=== PATIENT | female | born 1955 ===

== ENCOUNTER → 2023-02-09 14:10 | Outpatient (BNVA) | payer OTHER, MEDICAID, SELFPAY | PROVIDERS: PCP Student in an Organized Health Care Education/Training Program; Visit Provider Surgery Vascular Surgery | DX: I71.40 Abdominal aortic aneurysm, without rupture, unspecified (principal); I10 Essential (primary) hypertension | CPT/HCPCS: 99202 ==

== ENCOUNTER 2023-03-13 05:59 | Inpatient (IN) | payer OTHER, SELFPAY ==
--- NOTE | 2023-03-03 12:27 | P.CONAN_ITS ---
Documented by User: Ludivina Sanchez NP 03/10/23 10:05 HPI - Anesthesia Eval Consult details Narrative: 67yo F for Aortic Endovascular Repair Cardiac optimized [facility] Active Problems Active Problems: All Active Problems (Updated 02/10/23 @ 09:01 by Guicho Conti MD) AAA (abdominal aortic aneurysm) without rupture (Acute) Past Medical History Medical History Hypertension Family History Family History (Updated 02/09/23 @ 14:33 by ALEX Carmichael) Father Diabetes Hypertension Mother No problems noted. Family history of problems with anesthesia: No Surgical History Surgical History (Updated 03/13/23 @ 06:30 by Shannon Torres RN) Hx of colonoscopy Hx of eye surgery History of Problems with Anesthesia: No Social History Social History (Updated 02/09/23 @ 14:34 by ALEX Carmichael) Are you a primary healthcare liaison to a significant other at home: No Do you presently have visiting nurse or other home services: No Patient Tobacco Use Status: Never used Tobacco Use of substances other than those prescribed or required for medical reasons: No Have you been hit, kicked, punched, or otherwise hurt by someone within the past year? If so, by whom?: No Advance Directives: No Advance Directives Information Provided: No Advance Directives on File: No Recently lost weight without trying: No Eating poorly because of decreased appetite: No Nutrition Risks: No Nutritional Risk Patient : No : No Poor oral hygiene: Yes (bottom partial) Narrative Narrative: No recent illness No CP/SOB with >4mets. Reports rare SOB when laying flat. Meds Allergies Allergy/AdvReac Type Severity Reaction Status Date / Time Sulfa (Sulfonamide Allergy Severe Rash Verified 02/09/23 14:30 Antibiotics) Home Medications Medication Instructions Recorded Confirmed Last Taken Type amlodipine 10 mg tablet 10 mg PO DAILY 02/09/23 03/03/23 03/13/23 History aspirin 81 mg tablet,delayed 81 mg PO DAILY 02/09/23 03/03/23 03/05/23 History release metoprolol tartrate 50 mg tablet 50 mg PO DAILY 02/09/23 03/03/23 03/13/23 History multivitamin 1 tab PO DAILY 02/09/23 03/03/2303/12/23 History cholecalciferol (vitamin D3) 25 25 mcg PO DAILY 03/02/23 03/03/23 03/12/23 History mcg (1,000 unit) chewable tablet magnesium 250 mg tablet 250 mg PO DAILY 03/02/23 03/03/23 03/12/23 History potassium 95 mg tablet 90 mg PO DAILY 03/03/23 03/03/23 03/05/23 History Exam Exam Date and Time: March 03, 2023 122 Pertinent Lab Results Pertinent Lab Results: Lab Results 03/03/23 03/03/23 03/03/23 Range/Units 13:30 13:36 13:36 WBC 6.2 (4.8-10.8) X10*3/uL RBC 4.04 L (4.20-5.50) X10*6/uL Hgb 12.2 (12.0-16.0) g/dl Hct 38.1 (37.0-47.0) % MCV 94.3 (80.0-98.0) fL MCH 30.2 (27.0-33.0) pg MCHC 32.0 (31.0-35.0) g/dl RDW 13.9 (11.0-16.0) % Plt Count 160 (160-400) X10*3/uL MPV 11.0 (9.4-12.3) fL Absolute Nucleated RBC 0.000 (0.0-0.012) X10*3/uL Nucleated RBC % (auto) 0.0 (0.0-0.2) /100WBC PT 10.8 (10.0-13.1) SEC INR 0.9 (0.9-1.1) APTT 28.0 (26.0-36.4) SEC Sodium (135-145) mmol/L Potassium (3.3-5.1) mmol/L Chloride (96-108) mmol/L Carbon Dioxide (22-29) mmol/L Anion Gap (12-20) BUN (9-16) mg/dL Creatinine (0.5-1.4) mg/dL Estim Creat Clear Calc Estimated GFR Random Glucose (60-115) mg/dL Calcium (8.4-10.2) mg/dL Blood Type O Positive Antibody Screen NEGATIVE 03/03/23 Range/Units 13:36 WBC (4.8-10.8) X10*3/uL RBC (4.20-5.50) X10*6/uL Hgb (12.0-16.0) g/dl Hct (37.0-47.0) % MCV (80.0-98.0) fL MCH (27.0-33.0) pg MCHC (31.0-35.0) g/dl RDW (11.0-16.0) % Plt Count (160-400) X10*3/uL MPV (9.4-12.3) fL Absolute Nucleated RBC (0.0-0.012) X10*3/uL Nucleated RBC % (auto) (0.0-0.2) /100WBC PT (10.0-13.1) SEC INR (0.9-1.1) APTT (26.0-36.4) SEC Sodium 141 (135-145) mmol/L Potassium 4.7 (3.3-5.1) mmol/L Chloride 107 (96-108) mmol/L Carbon Dioxide 26 (22-29) mmol/L Anion Gap 13 (12-20) BUN 29 H (9-16) mg/dL Creatinine 0.94 (0.5-1.4) mg/dL Estim Creat Clear Calc 45.2 Estimated GFR 59 Random Glucose 87 (60-115) mg/dL Calcium 10.1 (8.4-10.2) mg/dL Blood Type Antibody Screen Narrative Narrative: EKG 01/2023 NSR @ 69 Airway Mallampati Class: II TM Dist: >3cm Neck ROM: Full Partial: Upper Heart: RRR Lungs: CTAB Assessment and Plan Assessment Anesthesia Assessment: Anesthesia Plan Discussed and PAT Visit Final Anesthetic Review Family History of Problems with Anesthesia: No History of Problems with Anesthesia: No Documented by User: Jayda Chappell MD 03/13/23 08:40 PMFSH Past Medical History Medical History Hypertension Family History Family History (Updated 02/09/23 @ 14:33 by ALEX Carmichael) Father Diabetes Hypertension Mother No problems noted. Surgical History Surgical History (Updated 03/13/23 @ 06:30 by Shannon Torres RN) Hx of colonoscopy Hx of eye surgery Social History Social History (Updated 02/09/23 @ 14:34 by ALEX Carmichael) Are you a primary healthcare liaison to a significant other at home: No Do you presently have visiting nurse or other home services: No Patient Tobacco Use Status: Never used Tobacco Use of substances other than those prescribed or required for medical reasons: No Have you been hit, kicked, punched, or otherwise hurt by someone within the past year? If so, by whom?: No Advance Directives: No Advance Directives Information Provided: No Advance Directives on File: No Recently lost weight without trying: No Eating poorly because of decreased appetite: No Nutrition Risks: No Nutritional Risk Patient : No : No Poor oral hygiene: Yes (bottom partial) Meds Allergies Allergy/AdvReac Type Severity Reaction Status Date / Time Sulfa (Sulfonamide Allergy Severe Rash Verified 02/09/23 14:30 Antibiotics) Home Medications Medication Instructions Recorded Confirmed Last Taken Type amlodipine 10 mg tablet 10 mg PO DAILY 02/09/23 03/03/23 03/13/23 History aspirin 81 mg tablet,delayed 81 mg PO DAILY 02/09/23 03/03/23 03/05/23 History release metoprolol tartrate 50 mg tablet 50 mg PO DAILY 02/09/23 03/03/23 03/13/23 History multivitamin 1 tab PO DAILY 02/09/23 03/03/23 03/12/23 History cholecalciferol (vitamin D3) 25 25 mcg PO DAILY 03/02/23 03/03/23 03/12/23 History mcg (1,000 unit) chewable tablet magnesium 250 mg tablet 250 mg PO DAILY 03/02/23 03/03/23 03/12/23 History potassium 95 mg tablet 90 mg PO DAILY 03/03/23 03/03/23 03/05/23 History Assessment and Plan Final Anesthetic Review NPO: Yes ASA Class: III Final Preanesthetic Review: No Changes in Pt Med Stat, Meds/Allgs Chart Reviewed, Consent Obtained/Reviewed and Anes Risks/Benef Reviewed Patient Risk: Intermediate Procedure Risk: High Anesthetic Plan Anesthetic Plan: GA and Agree w/ Assess. and Plan Disposition: Standard PACU and Inp. Admit - ICU
[2023-03-03 12:38] VITALS: BP 125/67; PULSE 69; RESP 18; O2SAT 98; BMI 23.7
[2023-03-03 14:17] LABS: Hematocrit 38.1 % (37.0-47.0); Hemoglobin 12.2 g/dl (12.0-16.0); Mean Corpuscular Hemoglobin 30.2 pg (27.0-33.0); Mean Corpuscular Volume 94.3 fL (80.0-98.0); Platelet Count 160 X10*3/uL (160-400); Red Blood Count 4.04 X10*6/uL (4.20-5.50); Red Cell Distribution Width 13.9 % (11.0-16.0); White Blood Count 6.2 X10*3/uL (4.8-10.8)
[2023-03-03 14:20] LABS: INTERNATIONAL NORM RATIO 0.9 (0.9-1.1); Prothrombin Time 10.8 SEC (10.0-13.1)
[2023-03-03 15:30] LABS: Anion Gap 13 (12-20); Blood Urea Nitrogen 29 mg/dL (9-16); Calcium 10.1 mg/dL (8.4-10.2); Carbon Dioxide 26 mmol/L (22-29); Chloride 107 mmol/L (96-108); Creatinine Clr Calc Pharmacy 45.2; Estimated Glomerular Filt Rate 59; Glucose Random 87 mg/dL (60-115); Potassium 4.7 mmol/L (3.3-5.1); Sodium 141 mmol/L (135-145)
[2023-03-13] VITALS (28 sets, daily range): BP systolic 56–133; BP diastolic 31–67; PULSE 46–94; RESP 12–20; TEMP 36.6–37.1; O2SAT 94–100
--- NOTE | ~2023-03-13 | CT_ITS ---
EXAMINATION: CT ANGIOGRAM ABDOMEN AND PELVIS CLINICAL INFORMATION: Decreased hematocrit and platelet count COMPARISON: Intraoperative fluoroscopic images March 2023 TECHNIQUE: Multiple axial images were obtained through the abdomen and pelvis following the administration of 80 mL of Omnipaque 350 intravenous contrast. Images were reviewed on a dedicated 3-D workstation. 3-D reconstructions with concurrent supervision. This CT examination was performed using dose optimization techniques as appropriate, variously including the following: *Automated exposure control *Adjustment of mA and/or kV according to patient size (this includes techniques or standardized protocols for targeted exams where dose is matched to indication/reason for exam; i.e. extremities or head) *Use of iterative reconstruction technique DLP: 296 mGy-cm FINDINGS: There is no active arterial bleeding/extravasation. There are post surgical changes from endovascular stent in the abdominal aorta and bilateral common iliac arteries. Proximal end of the stent in the upper suprarenal abdominal aorta. Distal ends of the stents are in the proximal bilateral common iliac arteries. There is some mild hematoma or thrombus seen in the aneurysm sac surrounding the stent. Aneurysm measures maximum 4.5 x 5 cm in AP and transverse dimension. No comparison preop imaging is available. There is minimal enhancement of the aneurysm postcontrast. No evidence of active arterial bleeding is seen. There is a small endoleak along the left inferior end of the aortic stent graft for example coronal reconstructed image 42 series 9. There is some filling of small lumbar arteries. There is a large right groin hematoma. This measures at least 5 x 5 x 10 cm. This is only partially visualized. The right common femoral artery is normal-appearing. No pseudoaneurysm aneurysm or AV fistula. The celiac axis, SMA are patent. MATEUSZ not seen. Single patent renal arteries. The common internal and external iliac and common femoral arteries are patent and normal in caliber. Both femoral bifurcations are patent. No evidence of retroperitoneal hematoma is seen. No ascites. Lung bases are clear. The liver is normal. The gallbladder is well-distended. No gallstones. No biliary duct dilatation. The spleen, pancreas, and adrenal glands are normal. Bilateral renal cysts. No imaging follow-up recommended. Small amount of air in the bladder. This may be related to Cole catheter placement. Mild constipation and diverticulosis. Appendix is normal. Small bowel and stomach are normal. No hernia. No adenopathy. Degenerative disc disease at L5-S1. CT/CT angio abdomen pelvis IMPRESSION: Postsurgical change following aortobiiliac stent graft. No evidence of active arterial extravasation. Small left inferior endoleak. No retroperitoneal hematoma. Aneurysm sac measures 4.5 x 5 cm in AP and transverse dimension. No preoperative imaging available for comparison. Large right groin hematoma. No evidence of active arterial extravasation at the groin, pseudoaneurysm or AV fistula. Fleischner guidelines were followed. Findings were communicated to Dr. Conti in person on 03/15/2023 at the completion of the exam
--- NOTE | ~2023-03-13 | FL_ITS ---
EXAMINATION: XR FLUOROSCOPY WITH IMAGES CLINICAL INFORMATION: Abdominal aortic aneurysm repair COMPARISON: None available. TECHNIQUE: Fluoroscopy Supervised By: Iliana. Fluoroscopy Time: 20 minutes. Cumulative Dose: 1 6 1,000,000) mGy. DAP: 40 Gycm2. Images: 2. FINDINGS: Fluoroscopy guidance was provided for endovascular abdominal aortic aneurysm repair. Images demonstrate catheter and stent in the abdominal aorta and proximal common iliac arteries. FL/FL guidance in OR IMPRESSION: Fluoroscopy guidance for endovascular abdominal aortic aneurysm repair
[2023-03-13 06:37] LABS: COVID-19 Test Negative (Negative); IDNOW Serial# BCCEAD1C
[2023-03-13] MEDS: Lactated Ringers 1,000 ML 100 ML IVCONT (06:45)
[2023-03-13 06:52] LABS: Hematocrit 37.1 % (37.0-47.0); Hemoglobin 12.1 g/dl (12.0-16.0); Mean Corpuscular HGB Conc 32.6 g/dl (31.0-35.0); Mean Corpuscular Volume 92.1 fL (80.0-98.0); Mean Platelet Volume 10.7 fL (9.4-12.3); Platelet Count 144 X10*3/uL (160-400); Red Blood Count 4.03 X10*6/uL (4.20-5.50); Red Cell Distribution Width 13.9 % (11.0-16.0); White Blood Count 6.5 X10*3/uL (4.8-10.8)
[2023-03-13 06:58] LABS: Anion Gap 12 (12-20); Blood Urea Nitrogen 23 mg/dL (9-16); Calcium 9.9 mg/dL (8.4-10.2); Carbon Dioxide 26 mmol/L (22-29); Chloride 107 mmol/L (96-108); Creatinine Clr Calc Pharmacy 44.3; Estimated Glomerular Filt Rate 58; Glucose Random 118 mg/dL (60-115); Potassium 3.8 mmol/L (3.3-5.1); Sodium 141 mmol/L (135-145)
[2023-03-13 07:04] LABS: INTERNATIONAL NORM RATIO 0.9 (0.9-1.1); Prothrombin Time 10.8 SEC (10.0-13.1)
[2023-03-13 07:06] LABS: Partial Thromboplastin Time 27.4 SEC (26.0-36.4)
--- NOTE | 2023-03-13 10:40 | MHC.SHP ---
Pre-Procedural Eval Section A Date of Service: 03/13/23 The patient is an INPATIENT: No Changes since office visit: Yes Patient answered all questions The History & Physical has been completed within 30 days and I have reviewed it.: Yes Section B Chief Complaint: Postop Allergies: Allergies Allergy/AdvReac Type Severity Reaction Status Date / Time Sulfa (Sulfonamide Allergy Severe Rash Verified 02/09/23 14:30 Antibiotics) Plan I have reviewed the history and physical and performed a pertinent physical examination on my patient. No changes have occurred unless specified. Time Spent With Patient Time: Total time managing care of this patient today ____ minutes.
--- NOTE | 2023-03-13 10:41 | P.OP_ITS ---
Operative Note Operative Note Date of Service: 03/13/23 Narrative: Operative note by [facility] Preoperative diagnosis: Abdominal aortic aneurysm without rupture Postoperative diagnosis: Same Procedure: Endovascular aortic aneurysm repair with Endologix AFX 2 device Surgeon:Guicho Conti M.D. Nougat Cutter Machine: Dr. Stone Anesthesia: General Specimens: 1 Drains: None Estimated blood loss: 100 mL Indications: 67-year-old female with incidental finding of aortic aneurysm. On true center line and measured 5.1 cm. She now presents for endovascular repair. The patient has signed the informed consent after reviewing risks, complications, benefits, and alternatives previously discussed with the patient. The patient was given the opportunity to ask any additional questions or voice any concerns. All questions were answered to the patient's satisfaction. Procedure in detail: Patient was brought to the operating room prior to which a time-out was called for patient identification and site verification cutdown was performed on the right common femoral artery using standard technique. We went down with a transverse incision down to the common femoral artery. We were able to encircle this with silastic loops proximally and distally. On the contr alateral side which was the patient's left side we did a percutaneous puncture using ultrasound guidance. A 4 [place] sheath was inserted to both vessels. And then we upsized to a 7 [place] sheath on the left side. Angiogram was performed to measure vessel length and characterize the anatomy and it is topography. We exchanged the right side wire for a Lunderquist stiff wire. We loaded the 22-90 /16 30 a FX 2 bifurcated device onto the stiff wire and advanced the contralateral wire up the 19 [place] OD a FX introducer sheath using wire guide. Contralateral wire was snared and pulled out the contra side. FX 2 bifurcated device was transferred into the a FX introducer sheath and advanced under fluoro until the distal limbs were above the aortic bifurcation releasing the limbs of the graft. We pulled the entire system down on to the aortic bifurcation. We deployed the main body of the graft by pulling the control cord handle. We then deployed the contralateral limb by pulling the yellow limb cover. We advanced a marker pigtail catheter over the contralateral wire until the tip was in contact with the wire lock. We held the pigtail catheter in place and pulled on the contralateral wire to release it from the wire lock. We deployed the ipsilateral limb by pinning the inner core and retracting the a FX introducer sheath. We then advanced and deployed a suprarenal endograft 25/90-20 and perform angiogram to visualize the renal artery. Final angiogram was performed we removed catheter wire and sheath. The left side was closed with a StarClose closure device. Right side cut down on the vessel was closed with a 6 0 Prolene suture. We then closed the deep layer using interrupted 2 0 poly Sorb superficial layer with 3-0 poly Sorb and finally skin with a 4-0 Monocryl. Steri-Strips and a sterile dressing were applied. Patient tolerated the procedure well and brought to recovery with stable vitals. Interpretation of films: 1. Ultrasound demonstrated appropriate puncture. Image was saved. 2. Initial angiogram demonstrated aneurysm and renals were appropriately visualized. Completion angiogram demonstrated appropriate endograft placement. There was no evidence of endoleak. Conclusion: Successful placement of Endologix AFX 2 aortic endograft This note is constructed using voice recognition software. While every effort has been made to ensure accuracy, radio commentator errors may have been included. Thank you for allowing me to participate in the care of your patient. Yours sincerely, Guicho Conti MD, FACS, R.P.V.I.
[2023-03-13] MEDS: ondansetron HCL 4 MG/2 ML VIAL IVPUSH (10:44)
[2023-03-13] MEDS: Acetaminophen 325 MG TABLET 650 MG PO ×2 (11:12→21:24)
[2023-03-13] MEDS: oxyCODONE HCl Immed Release 5 MG TABLET PO ×2 (11:12→23:31)
--- NOTE | 2023-03-13 11:45 | P.HPCC_ITS ---
History of Present Illness Date of Service: 03/13/23 Chief Complaint: Status post elective endovascular AAA repair 67-year-old lady with underlying hypertension and peripheral vascular disease now postop day 0 after an elective endovascular AAA repair being monitored in the intensive care unit, initially requiring vasopressor support. Review of Systems Constitutional: Constitutional: Denies daytime sleepiness, Denies excessive sweating, Denies fatigue, Denies fever(s), Denies lethargy, Denies malaise, Marek es night sweats, Denies snoring and Denies weight loss Eyes: Eyes: Denies blurry vision and Denies itchy eyes ENT: Denies nasal congestion, Denies post nasal drip, Denies sinus pain, Denies sinus pressure and Denies other ( Thrush) Cardiovascular: Cardiovascular: Denies chest pain, Denies pedal edema, Denies dyspnea, Denies orthopnea and Denies paroxysmal nocturnal dyspnea Respiratory: Respiratory: Denies cough, Denies hemoptysis, Denies excessive phlegm production, Denies dyspnea, Denies snoring and Denies wheezing Gastrointestinal: Gastrointestinal: Denies abdominal pain and Denies heartburn Musculoskeletal: Musculoskeletal: Denies myalgias, Denies arthralgias and Denies joint swelling Integumentary/Breasts: Skin/Breast: Denies rash Neurologic: Denies memory loss and Denies seizure-like activity Psychiatric: Psychiatric: Denies abnormal sleep pattern, Denies anxiety and Denies memory loss Endocrine: Endocrine: Denies excessive sweating, Denies fatigue and Denies heat intolerance Hematologic/Lymphatic: Hematologic/Lymphatic: Denies easy bruising Allergic/Immunologic: Allergic/Immunologic: Denies itchy eyes, Denies seasonal rhinorrhea and Denies wheezing PMFSH Past Medical History Medical History Hypertension Family History Family History (Updated 02/09/23 @ 14:33 by ALEX Carmichael) Father Diabetes Hypertension Mother No problems noted. Surgical History Surgical History Hx of colonoscopy Hx of eye surgery Social History Social History (Updated 02/09/23 @ 14:34 by ALEX Carmichael) Household Members: None Housing: Apartment Are you a primary healthcare associate to a significant other at home: No Do you presently have visiting nurse or other home services: No Patient Tobacco Use Status: Never used Tobacco Use of substances other than those prescribed or required for medical reasons: No Have you been hit, kicked, punched, or otherwise hurt by someone within the past year? If so, by whom?: No Do you feel safe in your current relationship?: No Current Relationship Is there a partner from a previous relationship who is making you feel unsafe now?: No Are you made to feel afraid or neglected: No Advance Directives: No Advance Directives Information Provided: No Advance Directives on File: No Do you have thoughts of harming others: None Do you have a plan to hurt others: No Plan Recently lost weight without trying: No Eating poorly because of decreased appetite: No Nutrition Risks: No Nutritional Risk Patient : No : No Poor oral hygiene: No Meds Allergies Allergy/AdvReac Type Severity Reaction Status Date / Time Sulfa (Sulfonamide Allergy Severe Rash Verified 02/09/23 14:30 Antibiotics) Active Medications: Current Medications Acetaminophen (Acetaminophen 325 Mg Tablet) 650 mg PO Q6H PRN PRN Reason: Pain, Mild (Pain Scale 1-3) Last Admin: 03/13/23 11:12 Dose: 650 mg Amlodipine Besylate (Amlodipine Besylate 10 Mg Tablet) 10 mg PO DAILY DONAL; Protocol Aspirin (Aspirin Enteric Coated 81 Mg Tablet.Dr) 81 mg PO DAILY PENDING SALE TO [facility] Lactated Ringer's (Lr) 1,000 mls @ 100 mls/hr IVCONT .Q10H DONAL Last Admin: 03/13/23 06:45 Dose: 100 mls/hr Cefazolin Sodium/Dextrose (Ancef) 2 gm in 50 mls @ 100 mls/hr IV POSTOP ONE Stop: 03/13/23 14:29 Metoprolol Tartrate (Metoprolol Tartrate 50 Mg Tablet) 50 mg PO DAILY DONAL; Protocol Morphine Sulfate (Morphine Sulfate 2 Mg/Ml Cartridge) 2 mg IVPUSH Q4H PRN; Protocol PRN Reason: Pain, Severe (Pain Scale 7-10) Multivitamins/Vitamin C (Multivitamin Tablet) 1 tab PO DAILY PENDING SALE TO [facility] Oxycodone HCl (Oxycodone Hcl Immed Release 5 Mg Tablet) 5 mg PO Q4H PRN PRN Reason: Pain, Moderate(Pain Scale 4-6) Sodium Chloride (0.9 % Sodium Chloride Flush 3 Ml Syringe) [facility] Vitamin D (Cholecalciferol (Vitamin D3) 25 Mcg Tablet) 25 mcg PO DAILY PENDING SALE TO [facility] Home Medications Medication Instructions Recorded Confirmed Last Taken Type amlodipine 10 mg tablet 10 mg PO DAILY 02/09/23 03/03/23 03/13/23 History aspirin 81 mg tablet,delayed 81 mg PO DAILY 02/09/23 03/03/23 03/05/23 History release metoprolol tartrate 50 mg tablet 50 mg PO DAILY 02/09/23 03/03/23 03/13/23 History multivitamin 1 tab PO DAILY 02/09/23 03/03/23 03/12/23 History cholecalciferol (vitamin D3) 25 25 mcg PO DAILY 03/02/23 03/03/23 03/12/23 History mcg (1,000 unit) chewable tablet magnesium 250 mg tablet 250 mg PO DAILY 03/02/23 03/03/23 03/12/23 History potassium 95 mg tablet 90 mg PO DAILY 03/03/23 03/03/23 03/05/23 History Physical Exam Vital Signs: Vital Signs: Last Vital Signs Temp 98.8 F 03/13/23 10:39 Pulse 63 03/13/23 11:24 Resp 16 03/13/23 11:24 BP 97/53 L 03/13/23 11:24 Pulse Ox 99 03/13/23 11:24 O2 Del Method Nasal Cannula 03/13/23 11:24 O2 Flow Rate 2 03/13/23 11:24 BMI result Body Mass Index 23.7 Const: General: no acute distress and alert Nutritional Appearance: not obese Orientation/consciousness: Other orientation findings ( oriented) HEENT: Head: Yes atraumatic Eyes: General: appearance normal, both eyes and all related structures Sclerae: sclerae normal EOM: EOMs intact bilaterally Neck: Neck: Yes supple Lymphatic: no lymphadenopathy noted Resp: Effort & Inspection: normal respiratory effort and no use of accessory muscles Auscultation: clear to auscultation bilaterally Cardio: Rate: regular rate Rhythm: regular rhythm Heart sounds: no gallops, no murmurs and no rubs GI: Palpation (GI): Soft to palpation and Other GI palpation findings present ( nontender) Skin: General skin exam: other ( warm) Rashes: no rashes Extrem: Other: Left femoral access site without hematoma. Right femoral access site with moderate hematoma, fluid bag over dressing for pressure, marked. General: No clubbing, No cyanosis and No edema Results Labs 03/13/23 06:33 03/13/23 06:33 Labs: Laboratory Results - last 24 hr 03/13/23 03/13/23 03/13/23 06:15 06:32 06:33 MCV 92.1 MCH 30.0 MCHC 32.6 RDW 13.9 Plt Count 144 L MPV 10.7 Absolute Nucleated RBC 0.000 Nucleated RBC % (auto) 0.0 PT INR APTT Anion Gap Estim Creat Clear Calc Estimated GFR Random Glucose Calcium COVID-19 (ISABEL) Negative COVID-19 Clin Com See Note Blood Type O Positive Antibody Screen NEGATIVE Crossmatch See Detail 03/13/23 03/13/23 06:33 06:33 MCV MCH MCHC RDW Plt Count MPV Absolute Nucleated RBC Nucleated RBC % (auto) PT 10.8 INR 0.9 APTT 27.4 Anion Gap 12 Estim Creat Clear Calc 44.3 Estimated GFR 58 Random Glucose 118 H Calcium 9.9 COVID-19 (ISABEL) COVID-19 Clin Com Blood Type Antibody Screen Crossmatch Assessment and Plan (1) S/P AAA repair: Status: Acute (2) Hypertension: Status: Acute Plan Assessment: 67-year-old lady postop day 0 status post an elective endovascular AAA repair being monitored in the intensive care unit Plan: Neuro: No acute issues. Cardiac: Postop day 0 after elective endovascular AAA repair. Titrate off vasopressor support as tolerated. Vascular surgery service care appreciated. Maintain systolic blood pressure under 180. Pulmonary: No acute issues. Renal: No acute issues. Endo: No acute issues. GI: No acute issues. ID: No acute issues Heme/Onc: No acute issues. Psych: No acute issues. Miscellaneous: No acute issues. Prophylaxis: Per vascular surgery Diet: Per vascular surgery
[2023-03-13 12:35] LABS: MANUAL DIFF FLAG NO
[2023-03-13] MEDS: Phenylephrine HCL 10 MG/ML VIAL IVPUSH (12:38)
[2023-03-13 12:40] LABS: Basophils Percent Auto 0.1 % (0-2); Eosinophils Percent Auto 0.1 % (0-4); Hematocrit 30.6 % (37.0-47.0); Hemoglobin 9.9 g/dl (12.0-16.0); Imm Gran Abs Auto 0.03 X10*3/uL (0.00-0.03); Imm Gran Pct Auto 0.4 % (0.0-0.4); Lymphocytes Absolute Auto 0.7 X10*3/uL (1.2-4.9); Lymphocytes Percent Auto 8.2 % (20-40); Mean Corpuscular HGB Conc 32.4 g/dl (31.0-35.0); Mean Corpuscular Volume 92.7 fL (80.0-98.0); Mean Platelet Volume 10.6 fL (9.4-12.3); Monocytes Absolute Auto 0.1 X10*3/uL (0.1-1.2); Monocytes Percent Auto 1.3 % (2-11); Neutrophils Absolute Auto 7.4 x10*3/uL (2.0-8.3); Neutrophils Percent Auto 89.9 % (45-73); Platelet Count 130 X10*3/uL (160-400); Red Cell Distribution Width 13.9 % (11.0-16.0); White Blood Count 8.2 X10*3/uL (4.8-10.8)
[2023-03-13] MEDS: Norepinephrine Bitartrate/D5W 8 MG/250 ML PLAST..BAG 5.17 MG IV (12:40)
[2023-03-13 13:01] LABS: Anion Gap 9 (12-20); Blood Urea Nitrogen 17 mg/dL (9-16); Calcium 8.6 mg/dL (8.4-10.2); Carbon Dioxide 25 mmol/L (22-29); Chloride 109 mmol/L (96-108); Creatinine Clr Calc Pharmacy 50.6; Estimated Glomerular Filt Rate > 60; Glucose Random 151 mg/dL (60-115); Magnesium 1.9 mg/dL (1.6-2.6); Phosphorus 3.1 mg/dL (2.7-4.5); Potassium 4.3 mmol/L (3.3-5.1); Sodium 139 mmol/L (135-145)
[2023-03-13] MEDS: Lactated Ringers 500 ML 999 ML IV (13:02)
[2023-03-13 13:40] LABS: ABG Base Excess 3.9 mmol/L; ABG HCO3 28 mmol/L (22-26); ABG pCO2 41 mmHg (32-45); ABG pH 7.43 (7.35-7.45); ABG pO2 94 mmHg (83-108)
[2023-03-13] MEDS: ceFAZolin Sodium/Dextrose,Iso 2 GM/50 ML PIGGYBACK IV (14:01)
[2023-03-13] MEDS: Morphine Sulfate 2 MG/ML CARTRIDGE IVPUSH (14:01)
--- NOTE | 2023-03-13 18:55 | PC.NURSE ---
Pt to ICU at approximately 1145 s/p AAA repair. Shortly after, pt became hypotensive. Director Health at bedside to administer phenylephrine IV push. Levophed gtt and LR bolus ordered and initiated. BP improved. Surgeon to the bedside - assessed surgical site. Hematoma noted and outlined by surgeon. Levo gtt titrated per protocol. Remains on strict bedrest overnight per MD. Will continue with plan of care.
[2023-03-13 19:15] LABS: MANUAL DIFF FLAG NO
[2023-03-13 19:17] LABS: Basophils Percent Auto 0.1 % (0-2); Hematocrit 28.6 % (37.0-47.0); Hemoglobin 9.4 g/dl (12.0-16.0); Imm Gran Abs Auto 0.06 X10*3/uL (0.00-0.03); Imm Gran Pct Auto 0.4 % (0.0-0.4); Lymphocytes Absolute Auto 0.7 X10*3/uL (1.2-4.9); Lymphocytes Percent Auto 5.1 % (20-40); Mean Corpuscular HGB Conc 32.9 g/dl (31.0-35.0); Mean Corpuscular Hemoglobin 29.9 pg (27.0-33.0); Mean Corpuscular Volume 91.1 fL (80.0-98.0); Mean Platelet Volume 10.2 fL (9.4-12.3); Monocytes Absolute Auto 0.8 X10*3/uL (0.1-1.2); Monocytes Percent Auto 5.5 % (2-11); Neutrophils Percent Auto 88.9 % (45-73); Platelet Count 142 X10*3/uL (160-400); Red Blood Count 3.14 X10*6/uL (4.20-5.50); Red Cell Distribution Width 13.7 % (11.0-16.0); White Blood Count 14.6 X10*3/uL (4.8-10.8)
[2023-03-13] MEDS: 0.9 % Sodium Chloride Flush 3 ML SYRINGE IVFLUSH (23:20)
[2023-03-13 23:45] LABS: MANUAL DIFF FLAG NO
[2023-03-13 23:46] LABS: Basophils Percent Auto 0.1 % (0-2); Hematocrit 25.8 % (37.0-47.0); Hemoglobin 8.7 g/dl (12.0-16.0); Imm Gran Abs Auto 0.05 X10*3/uL (0.00-0.03); Imm Gran Pct Auto 0.4 % (0.0-0.4); Lymphocytes Absolute Auto 0.9 X10*3/uL (1.2-4.9); Lymphocytes Percent Auto 7.4 % (20-40); Mean Corpuscular HGB Conc 33.7 g/dl (31.0-35.0); Mean Corpuscular Hemoglobin 30.1 pg (27.0-33.0); Mean Corpuscular Volume 89.3 fL (80.0-98.0); Mean Platelet Volume 10.1 fL (9.4-12.3); Monocytes Absolute Auto 0.9 X10*3/uL (0.1-1.2); Monocytes Percent Auto 7.3 % (2-11); Neutrophils Percent Auto 84.8 % (45-73); Platelet Count 132 X10*3/uL (160-400); Red Blood Count 2.89 X10*6/uL (4.20-5.50); Red Cell Distribution Width 13.5 % (11.0-16.0); White Blood Count 11.8 X10*3/uL (4.8-10.8)
[2023-03-14] VITALS (21 sets, daily range): BP systolic 101–124; BP diastolic 45–74; PULSE 62–118; RESP 15–20; TEMP 36.2–37.1; O2SAT 96–100; BMI 26.9
[2023-03-14 00:10] LABS: Alanine Aminotransferase 8 U/L (0-31); Albumin Level 3.6 g/dL (3.5-5.0); Alkaline Phosphatase 68 U/L (39-117); Anion Gap 14 (12-20); Aspartate Amino Transferase 17 U/L (5-31); Bilirubin Total 0.6 mg/dL (0.0-1.0); Blood Urea Nitrogen 20 mg/dL (9-16); Calcium 8.7 mg/dL (8.4-10.2); Carbon Dioxide 21 mmol/L (22-29); Chloride 106 mmol/L (96-108); Creatinine Clr Calc Pharmacy 49.4; Estimated Glomerular Filt Rate > 60; Glucose Random 173 mg/dL (60-115); Potassium 4.3 mmol/L (3.3-5.1); Sodium 137 mmol/L (135-145); Total Protein 6.3 g/dL (6.5-8.0)
--- NOTE | 2023-03-14 01:31 | PC.NURSE ---
Addendum entered by Min Garcia RN 03/14/23 04:14: LEVOPHED DRIP WEANED OFF..BP STABLE...RIGHT FEMORAL DRESSING UNCHANGED..PALPABLE BILATERAL DORSALIS PULSES PRESENT..BILATERAL POSTERIOR TIBIAL PULSES PRESENT...RESTFUL OVERNIGHT Original Note: CARE ASSUMED 23:15..AWAKE..ALERT..ORIENTED X3..RESPIRATIONS EASY..SAO2 97-98% ON ROOM AIR..LEFT RADIAL A-LINE CORRELATES WITH RIGHT ARM NBP...LEVOPHED @ 0.12 MCG/KG/MIN VIA PERIPHERAL ACCESS AT HS...CURRENTLY WEANED TO 0.04 MCG/KG/MIN WITH STABLE BP...RIGHT FEMORAL DRESSING PREVIOUSLY MARKED BY SURGEON PER SHIFT REPORT..NO SIGNS OF BLEEDING...BILATERAL DOPPLER PULSES PRESENT...DORSALIS PULSES STRONGER THAN PSTERIOR PULSES..FEET WARM...PRN OXYCODONE AT HS FOR C/O OF BACK PAIN WITH EFFECT..RESTFUL...SURGICAL SITE EXAMINED BY ICU PA...12AM LABS DRAWN AND REVIEWED...FOR REPEAT AM LABS PER NOV...NSR..NO ECTOPY..STEVE YELLOW URINE
[2023-03-14 02:18] LABS: ABG Refer to POC result
[2023-03-14 05:14] LABS: VBG Base Excess 5.5 mmol/L; VBG HCO3 29 mmol/L (22-26); VBG pCO2 38 mmHg; VBG pH 7.48 (7.32-7.43); VBG pO2 119 mmHg
[2023-03-14 05:29] LABS: Venous Blood Gas Refer to POC result
[2023-03-14 05:32] LABS: Neutrophils Percent Auto 76.9 % (45-73); PLT CLUMP 1; SCAN SMEAR FLAG 1
[2023-03-14 05:34] LABS: Basophils Percent Auto 0.2 % (0-2); Hematocrit 23.4 % (37.0-47.0); Hemoglobin 7.8 g/dl (12.0-16.0); Imm Gran Abs Auto 0.05 X10*3/uL (0.00-0.03); Imm Gran Pct Auto 0.6 % (0.0-0.4); Lymphocytes Absolute Auto 1.1 X10*3/uL (1.2-4.9); Lymphocytes Percent Auto 12.2 % (20-40); Mean Corpuscular HGB Conc 33.3 g/dl (31.0-35.0); Mean Corpuscular Hemoglobin 30.1 pg (27.0-33.0); Mean Corpuscular Volume 90.3 fL (80.0-98.0); Mean Platelet Volume 10.5 fL (9.4-12.3); Monocytes Absolute Auto 0.9 X10*3/uL (0.1-1.2); Monocytes Percent Auto 10.1 % (2-11); Neutrophils Absolute Auto 6.9 x10*3/uL (2.0-8.3); Red Blood Count 2.59 X10*6/uL (4.20-5.50); Red Cell Distribution Width 13.9 % (11.0-16.0)
[2023-03-14 05:36] LABS: MANUAL DIFF FLAG NO; Platelet Count 116 X10*3/uL (160-400); White Blood Count 8.9 X10*3/uL (4.8-10.8)
[2023-03-14 06:09] LABS: Albumin Level 3.5 g/dL (3.5-5.0); Anion Gap 14 (12-20); Blood Urea Nitrogen 22 mg/dL (9-16); Calcium 8.7 mg/dL (8.4-10.2); Carbon Dioxide 23 mmol/L (22-29); Chloride 106 mmol/L (96-108); Creatinine Clr Calc Pharmacy 54.2; Estimated Glomerular Filt Rate > 60; Glucose Random 134 mg/dL (60-115); Magnesium 2.1 mg/dL (1.6-2.6); Phosphorus 4.3 mg/dL (2.7-4.5); Potassium 4.7 mmol/L (3.3-5.1); Sodium 138 mmol/L (135-145)
[2023-03-14] MEDS: Acetaminophen 325 MG TABLET 650 MG PO ×2 (08:44→20:59)
[2023-03-14] MEDS: Multivitamin TABLET 1 TAB PO (08:44)
[2023-03-14] MEDS: Cholecalciferol (Vitamin D3) 25 MCG TABLET PO (08:44)
[2023-03-14] MEDS: 0.9 % Sodium Chloride Flush 3 ML SYRINGE IVFLUSH ×3 (08:45→21:00)
--- NOTE | 2023-03-14 09:07 | P.PNCC_ITS ---
Subjective Subjective Date of Service: 03/14/23 Interval History: 67-year-old lady with underlying hypertension and peripheral vascular disease now postop day 0 after an elective endovascular AAA repair being monitored in the intensive care unit, initially requiring vasopressor support. Overnight titrated of pressor support. Hemoglobin is equilibrating. Critical Care Time (minutes): 0 Physical Exam Vital Signs: Vital Signs: Last Vital Signs Temp 98.6 F 03/14/23 07:00 Pulse 78 03/14/23 08:00 Resp 15 03/14/23 08:00 BP 112/55 L 03/14/23 08:00 Pulse Ox 100 03/14/23 08:48 O2 Del Method Room Air 03/14/23 08:48 O2 Flow Rate 2 03/13/23 11:35 BMI result Body Mass Index 26.9 Const: General: no acute distress, alert and awake Eyes: Sclerae: sclerae normal EOM: EOMs intact bilaterally Neck: Neck: Yes no lymphadenopathy, Yes trachea midline and Yes supple Resp: Effort & Inspection: normal respiratory effort and no respiratory distress Auscultation: clear to auscultation bilaterally Cardio: Rate: regular rate Rhythm: regular rhythm Heart sounds: no gallops, no murmurs and no rubs GI: Palpation (GI): Soft to palpation and Other GI palpation findings present ( Nontender) Auscultation: normal bowel sounds Extrem: Other: Left femoral access site without hematoma. Right femoral access site with improving hematoma. General: Yes no pedal edema, No clubbing and No cyanosis Objective Data Labs 03/14/23 05:06 03/14/23 05:06 Labs: Laboratory Results - last 24 hr 03/13/23 03/13/23 03/13/23 12:28 12:28 13:30 WBC 8.2 RBC 3.30 L Hgb 9.9 L Hct 30.6 L MCV 92.7 MCH 30.0 MCHC 32.4 RDW 13.9 Plt Count 130 L MPV 10.6 Immature Gran % (Auto) 0.4 Neut % (Auto) 89.9 H Lymph % (Auto) 8.2 L [place] % (Auto) 1.3 L Eos % (Auto) 0.1 Baso % (Auto) 0.1 Lymph # (Auto) 0.7 L [place] # (Auto) 0.1 Eos # (Auto) 0.0 Baso # (Auto) 0.0 Abs Immat Gran (auto) 0.03 Absolute Neuts (auto) 7.4 Absolute Nucleated RBC 0.000 Nucleated RBC % (auto) 0.0 O2 Saturation 98.0 ABG pH at Pt Temp 7.43 ABG pCO2 at Pt Temp 41 ABG pO2 at Pt Temp 94 ABG HCO3 28 H ABG Base Excess (Actual) 3.9 VBG pH VBG pCO2 VBG pO2 VBG HCO3 VBG O2 Saturation VBG Base Excess Sodium 139 Potassium 4.3 Chloride 109 H Carbon Dioxide 25 Anion Gap 9 L BUN 17 H Creatinine 0.84 Estim Creat Clear Calc 50.6 Estimated GFR > 60 Random Glucose 151 H Calcium 8.6 D Phosphorus 3.1 Magnesium 1.9 Total Bilirubin AST ALT Alkaline Phosphatase Total Protein Albumin 03/13/23 03/13/23 03/13/23 19:07 23:40 23:40 WBC 14.6 H 11.8 H RBC 3.14 L 2.89 L Hgb 9.4 L 8.7 L Hct 28.6 L 25.8 L MCV 91.1 89.3 MCH 29.9 30.1 MCHC 32.9 33.7 RDW 13.7 13.5 Plt Count 142 L 132 L MPV 10.2 10.1 Immature Gran % (Auto) 0.4 0.4 Neut % (Auto) 88.9 H 84.8 H Lymph % (Auto) 5.1 L 7.4 L [place] % (Auto) 5.5 7.3 Eos % (Auto) 0.0 0.0 Baso % (Auto) 0.1 0.1 Lymph # (Auto) 0.7 L 0.9 L [place] # (Auto) 0.8 0.9 Eos # (Auto) 0.0 0.0 Baso # (Auto) 0.0 0.0 Abs Immat Gran (auto) 0.06 H 0.05 H Absolute Neuts (auto) 13.0 H 10.0 H Absolute Nucleated RBC 0.000 0.000 Nucleated RBC % (auto) 0.0 0.0 O2 Saturation ABG pH at Pt Temp ABG pCO2 at Pt Temp ABG pO2 at Pt Temp ABG HCO3 ABG Base Excess (Actual) VBG pH VBG pCO2 VBG pO2 VBG HCO3 VBG O2 Saturation VBG Base Excess Sodium 137 Potassium 4.3 Chloride 106 Carbon Dioxide 21 L Anion Gap 14 BUN 20 H Creatinine 0.86 Estim Creat Clear Calc 49.4 Estimated GFR > 60 Random Glucose 173 H Calcium 8.7 Phosphorus Magnesium Total Bilirubin 0.6 AST 17 ALT 8 Alkaline Phosphatase 68 Total Protein 6.3 L Albumin 3.6 03/14/23 03/14/23 03/14/23 05:04 05:06 05:06 WBC 8.9 RBC 2.59 L Hgb 7.8 L Hct 23.4 L MCV 90.3 MCH 30.1 MCHC 33.3 RDW 13.9 Plt Count 116 L MPV 10.5 Immature Gran % (Auto) 0.6 H Neut % (Auto) 76.9 H Lymph % (Auto) 12.2 L [place] % (Auto) 10.1 Eos % (Auto) 0.0 Baso % (Auto) 0.2 Lymph # (Auto) 1.1 L [place] # (Auto) 0.9 Eos # (Auto) 0.0 Baso # (Auto) 0.0 Abs Immat Gran (auto) 0.05 H Absolute Neuts (auto) 6.9 Absolute Nucleated RBC 0.000 Nucleated RBC % (auto) 0.0 O2 Saturation ABG pH at Pt Temp ABG pCO2 at Pt Temp ABG pO2 at Pt Temp ABG HCO3 ABG Base Excess (Actual) VBG pH 7.48 H VBG pCO2 38 VBG pO2 119 VBG HCO3 29 H VBG O2 Saturation 99.0 VBG Base Excess 5.5 Sodium 138 Potassium 4.7 Chloride 106 Carbon Dioxide 23 Anion Gap 14 BUN 22 H Creatinine 0.83 Estim Creat Clear Calc 54.2 Estimated GFR > 60 Random Glucose 134 H Calcium 8.7 Phosphorus 4.3 Magnesium 2.1 Total Bilirubin AST ALT Alkaline Phosphatase Total Protein Albumin 3.5 Progress Note: A&P Assessment and plan (1) S/P AAA repair: Status: Acute (2) Hypertension: Status: Acute Plan Assessment: 67-year-old lady postop day 0 status post an elective endovascular AAA repair being monitored in the intensive care unit Plan: Neuro: No acute issues. Cardiac: Postop day 0 after elective endovascular AAA repair. Titrate off vasopressor support as tolerated. Vascular surgery service care appreciated. Maintain systolic blood pressure under 180. Pulmonary: No acute issues. Renal: No acute issues. Endo: No acute issues. GI: No acute issues. ID: No acute issues Heme/Onc: blood loss anemia secondary to right femoral vascular access site hematoma. Hematoma is improving. Hemoglobin is stabilizing. Continue to monitor hemoglobin level. Psych: No acute issues. Miscellaneous: No acute issues. Prophylaxis: Per vascular surgery Diet: Regular Quality Stroke Does the patient have a stroke diagnosis?: No VTE Prior VTE?: No VTE Risk Level:: Medical - moderate - high VTE Device Contraindication: N/A - Device Ordered VTE Drug Contraindication: Treatment Not Tolerated
--- NOTE | 2023-03-14 09:47 | P.PNVS_ITS ---
Subjective Subjective Date of Service: 03/14/23 Patient reports: no new complaints and feels better Interval history: Pleasant 67-year-old female postop day 1 status post endovascular aneurysm repair. Significant events overnight. She did develop all right groin hematoma. H&H did decrease. This morning is off pressors in appears to be relatively stable. Has been totally asymptomatic throughout this entire process. Relatively comfortable in bed. No complaints. Physical Exam Vital Signs: Vital Signs: Last Vital Signs Temp 98.6 F 03/14/23 07:00 Pulse 70 03/14/23 09:00 Resp 16 03/14/23 09:00 BP 123/59 L 03/14/23 09:00 Pulse Ox 99 03/14/23 09:00 O2 Del Method Room Air 03/14/23 09:00 O2 Flow Rate 2 03/13/23 11:35 BMI result Body Mass Index 26.9 Const: General: cooperative, healthy appearing and no acute distress Orientation/consciousness: oriented to person, oriented to place and oriented to time HEENT: Head: Yes normal to inspection Neck: Carotids: no bruits Chest: Chest palpation & inspection: normal inspection of the chest Resp: Effort & Inspection: normal respiratory effort and able to speak in complete sentences Auscultation: clear to auscultation bilaterally Cardio: Rate: regular rate Heart sounds: S1 normal heart sound present and S2 normal heart sound present GI: Inspection: Yes normal to inspection Skin: Other: Right groin hematoma General skin exam: no rashes or lesions noted Wounds: no wounds Neuro: General: oriented to person, oriented to place, oriented to time and CN's II-XI intact bilaterally Extrem: General: Yes normal to inspection, Yes full ROM and Yes no clubbing, cyanosis or edema Psych: Appearance: grossly normal and well kempt Speech and movement: Normal speech and movement present Affect: normal affect Progress Note: A&P Assessment and plan (1) AAA (abdominal aortic aneurysm) without rupture: Status: Acute Assessment and Plan: In short patient is stable status post endovascular repair. Will remove A-line Cole. Will continue to monitor H&H as it did drop from a 12 to 7.8. We will transfer to floor. Will hold aspirin for now. Thank you to the unit manager [employer] stores for their assistance in this patient's care. Time Spent With Patient Time: Total time managing care of this patient today ____ minutes. Procedures Date of Service Date of Service: 03/14/23 Quality Stroke Does the patient have a stroke diagnosis?: No VTE Prior VTE?: No VTE Risk Level:: Medical - moderate - high VTE Device Contraindication: N/A - Device Ordered VTE Drug Contraindication: Treatment Not Tolerated
--- NOTE | 2023-03-14 10:14 | MHC.CM.PN ---
Attempted to meet w/pt for d/c planning discussion: pt requires blow up operator: call placed and waiting for assistance. Pt's contacts are also [place] speaking only.
[2023-03-14 12:28] LABS: Hematocrit 25.4 % (37.0-47.0); Hemoglobin 8.3 g/dl (12.0-16.0); Mean Corpuscular HGB Conc 32.7 g/dl (31.0-35.0); Mean Corpuscular Hemoglobin 30.3 pg (27.0-33.0); Mean Corpuscular Volume 92.7 fL (80.0-98.0); PLT CLUMP 1; Red Blood Count 2.74 X10*6/uL (4.20-5.50); Red Cell Distribution Width 14.1 % (11.0-16.0)
--- NOTE | 2023-03-14 13:29 | P.CDIM_ITS ---
PROVIDER RESPONSE TEXT: To clarify, the appropriate diagnosis supported by the clinical indicators: Acute QUERY TEXT: PHYSICIAN'S DOCUMENTATION REQUEST Date of Query: 03/14/2023 01:20 PM EDT Patient Name: Mindy Contreras Admit Date: 03/13/2023 Dear Charli Ching, A review of the medical record indicates additional documentation may be needed. Please review below and update the documentation accordingly. Clinical Indicators: H&H on 03/13/23: 9.9/30.6 H&H on 03/14/23: 7.8/23.4 Per Critical Care Progress Note 03/14/23: blood loss anemia secondary to right femoral vascular access site hematoma Clarify which of the following accurately represents the acuity of the blood loss anemia. Possible options might include: Acute Acute on chronic Compensated Chronic stable condition Remission Other (explain)Clinically unable to determine (explain)Thank you, Andreea Christie RN Use of terms such as suspected, likely, concern for, or probable (associated with a specific diagnosi s that is being evaluated, monitored, or treated as if it exists) are acceptable and can be coded in the inpatient se tting, when documented at the time of discharge. Please use your independent medical judgment in providing your response. THIS QUERY IS PART OF THE PERMANENT MEDICAL RECORD
[2023-03-14 13:40] LABS: Platelet Count 100 X10*3/uL (160-400); White Blood Count 9.7 X10*3/uL (4.8-10.8)
--- NOTE | 2023-03-14 13:54 | HO.POSTANES ---
Post Anesthesia Evaluation Post Anesthesia Evaluation Date of Service: 03/14/23 Vital Signs: Vital Signs Temp Pulse Resp BP Pulse Ox O2 Del Method 03/14/23 12:22 88 115/58 L 03/14/23 12:00 98.3 F 92 20 115/58 L 100 Room Air 03/14/23 10:00 88 17 106/45 L 100 Room Air 03/14/23 08:48 100 Room Air 03/14/23 09:00 70 16 123/59 L 99 Room Air 03/14/23 08:00 78 15 112/55 L 98 Room Air 03/14/23 07:00 98.6 F 81 16 101/53 L 98 Room Air 03/14/23 06:00 71 17 113/56 L 97 Room Air 03/14/23 05:00 68 16 110/56 L 97 Room Air 03/14/23 03:56 98.0 F 66 16 108/54 L 98 Room Air 03/14/23 03:55 66 116/58 L 03/14/23 02:00 72 16 108/58 L 97 Room Air 03/14/23 03:00 62 17 114/58 L 97 Room Air Anesthesia: General Endotracheal-GETA Mental Status: Awake Pain Control: Satisfactory Nausea/Vomiting: None Hydration: Adequate Anesthesia-Related Issues: No Anes. Related Issues
[2023-03-14] MEDS: oxyCODONE HCl Immed Release 5 MG TABLET PO (17:20)
[2023-03-15] VITALS (13 sets, daily range): BP systolic 115–143; BP diastolic 55–75; PULSE 98–115; RESP 16–20; TEMP 36.3–37.3; O2SAT 97–100
[2023-03-15 06:31] LABS: MANUAL DIFF FLAG NO
[2023-03-15 06:46] LABS: Basophils Percent Auto 0.2 % (0-2); Eosinophils Percent Auto 0.1 % (0-4); Imm Gran Abs Auto 0.06 X10*3/uL (0.00-0.03); Imm Gran Pct Auto 0.7 % (0.0-0.4); Lymphocytes Absolute Auto 1.3 X10*3/uL (1.2-4.9); Lymphocytes Percent Auto 13.9 % (20-40); Mean Corpuscular HGB Conc 32.2 g/dl (31.0-35.0); Mean Corpuscular Hemoglobin 30.5 pg (27.0-33.0); Mean Corpuscular Volume 94.8 fL (80.0-98.0); Mean Platelet Volume 11.1 fL (9.4-12.3); Monocytes Percent Auto 11.4 % (2-11); Neutrophils Absolute Auto 6.8 x10*3/uL (2.0-8.3); Neutrophils Percent Auto 73.7 % (45-73); Red Blood Count 2.13 X10*6/uL (4.20-5.50); Red Cell Distribution Width 14.4 % (11.0-16.0); White Blood Count 9.2 X10*3/uL (4.8-10.8)
[2023-03-15 07:08] LABS: Albumin Level 3.3 g/dL (3.5-5.0); Anion Gap 10 (12-20); Blood Urea Nitrogen 15 mg/dL (9-16); Calcium 8.5 mg/dL (8.4-10.2); Carbon Dioxide 25 mmol/L (22-29); Chloride 108 mmol/L (96-108); Creatinine Clr Calc Pharmacy 59.2; Estimated Glomerular Filt Rate > 60; Glucose Random 98 mg/dL (60-115); Magnesium 2.2 mg/dL (1.6-2.6); Phosphorus 2.4 mg/dL (2.7-4.5); Potassium 4.3 mmol/L (3.3-5.1); Sodium 139 mmol/L (135-145)
[2023-03-15 07:35] LABS: Hematocrit 20.2 % (37.0-47.0)
[2023-03-15 07:36] LABS: Platelet Count 71 X10*3/uL (160-400)
[2023-03-15 07:37] LABS: Hemoglobin 6.5 g/dl (12.0-16.0)
[2023-03-15] MEDS: Multivitamin TABLET 1 TAB PO (07:41)
[2023-03-15] MEDS: Acetaminophen 325 MG TABLET 650 MG PO (07:41)
[2023-03-15] MEDS: Cholecalciferol (Vitamin D3) 25 MCG TABLET PO (07:41)
--- NOTE | 2023-03-15 09:00 | HO.VASCPN ---
Subjective Subjective Date of Service: 03/15/23 Patient reports: no new complaints Interval history: Pleasant 67-year-old female postop day 2 status post endovascular aneurysm repair. No events overnight relatively comfortable. She has only mild tachycardia but totally asymptomatic from this. She had an improvement in her hemoglobin yesterday to 8.3 but this morning straw the demonstrated a hemoglobin of 6.5. She is now for follow-up. Physical Exam Vital Signs: Vital Signs: Last Vital Signs Temp 99.1 F 03/15/23 07:05 Pulse 115 H 03/15/23 07:05 Resp 20 03/15/23 07:05 BP 115/55 L 03/15/23 07:05 Pulse Ox 97 03/15/23 07:50 O2 Del Method Room Air 03/15/23 07:50 O2 Flow Rate 2 03/13/23 11:35 BMI result Body Mass Index 26.9 Const: General: cooperative, healthy appearing and comfortable Orientation/consciousness: oriented to person, oriented to place and oriented to time HEENT: Head: Yes normal to inspection Neck: Neck: Yes normal visual inspection Carotids: no bruits Chest: Chest palpation & inspection: normal inspection of the chest Resp: Effort & Inspection: normal respiratory effort and able to speak in complete sentences Auscultation: clear to auscultation bilaterally, no crackles, no rales, no rhonchi and no wheezes Cardio: Rate: regular rate Rhythm: regular rhythm Heart sounds: S1 normal heart sound present and S2 normal heart sound present Bruits: no carotid bruits Peripheral pulses: Peripheral pulses 2+ throughout GI: Inspection: Yes normal to inspection Skin: Other: Right groin hematoma soft Wounds: no wounds Hair: normal Neuro: General: oriented to person, oriented to place and oriented to time Cranial nerves: Yes CN's II-XII intact bilaterally and Yes Normal hearing present Cognition (Neuro): normal cognition Motor exam (neuro): 5/5 motor strength present throughout Extrem: Other: venous exam: No significant superficial varicosities or spider telangiectasias, minimal edema General: No clubbing, No cyanosis and No edema Psych: Appearance: grossly normal Mental Status: mental status grossly normal Speech and movement: Normal speech and movement present Progress Note: A&P Assessment and plan (1) S/P AAA repair: Status: Acute Assessment and Plan: In short she has done extremely well status post endovascular repair in terms of the repair portion. She did have a small hematoma which appears to have improved. Does not appear to have any enlargement and her thighs relatively soft. Of concern is her decrease in platelets. She went from 160 preop down to 71. The concern here may be hit and Hematology-Oncology evaluation was obtained. In addition we have ordered stat repeat CBC along with a unit of blood as she is tachycardic. The transfusion is required because it is anemia secondary to acute postoperative blood loss. In addition I have ordered a stat CTA of the abdomen and pelvis to assess if there is any sort of bleeding or endoleak. Patient is otherwise doing well from my perspective. If her hemoglobin did not drop would have anticipated discharge today. As patient is anxious to go home. Will closely monitor her status. Hospitalist team was informed. Time Spent With Patient Time: Total time managing care of this patient today ____ minutes. Procedures Date of Service Date of Service: 03/15/23 Quality Stroke Does the patient have a stroke diagnosis?: No VTE Prior VTE?: No VTE Risk Level:: Medical - moderate - high VTE Device Contraindication: N/A - Device Ordered VTE Drug Contraindication: Treatment Not Tolerated
[2023-03-15 09:13] LABS: MANUAL DIFF FLAG NO
[2023-03-15 09:20] LABS: Basophils Percent Auto 0.2 % (0-2); Hematocrit 21.2 % (37.0-47.0); Imm Gran Abs Auto 0.06 X10*3/uL (0.00-0.03); Imm Gran Pct Auto 0.6 % (0.0-0.4); Lymphocytes Absolute Auto 1.1 X10*3/uL (1.2-4.9); Lymphocytes Percent Auto 11.2 % (20-40); Mean Corpuscular HGB Conc 32.1 g/dl (31.0-35.0); Mean Corpuscular Hemoglobin 30.1 pg (27.0-33.0); Mean Corpuscular Volume 93.8 fL (80.0-98.0); Mean Platelet Volume 10.9 fL (9.4-12.3); Monocytes Absolute Auto 0.9 X10*3/uL (0.1-1.2); Monocytes Percent Auto 9.4 % (2-11); Neutrophils Absolute Auto 7.7 x10*3/uL (2.0-8.3); Neutrophils Percent Auto 78.6 % (45-73); Red Blood Count 2.26 X10*6/uL (4.20-5.50); Red Cell Distribution Width 14.5 % (11.0-16.0); White Blood Count 9.8 X10*3/uL (4.8-10.8)
[2023-03-15 09:31] LABS: Platelet Count 88 X10*3/uL (160-400)
[2023-03-15 09:32] LABS: Hemoglobin 6.8 g/dl (12.0-16.0)
--- NOTE | 2023-03-15 09:53 | P.PNIM_ITS ---
Subjective Subjective Date of Service: 03/15/23 Review of Systems Follow up consult AAA repair feeling better still tachy Physical Exam Vital Signs: Vital Signs: Last Vital Signs Temp 99.1 F 03/15/23 07:05 Pulse 115 H 03/15/23 07:05 Resp 20 03/15/23 07:05 BP 115/55 L 03/15/23 07:05 Pulse Ox 97 03/15/23 07:50 O2 Del Method Room Air 03/15/23 07:50 O2 Flow Rate 2 03/13/23 11:35 BMI result Body Mass Index 26.9 Appearing in no acute distress lung sounds are clear to auscultation heart regular rate rhythm, clear S1, S2 positive bowel sounds, abdomen is soft, nontender neuro patient is alert x3, no focal deficits Objective Data Active Medications Acetaminophen (Acetaminophen 325 Mg Tablet) 650 mg PO Q6H PRN PRN Reason: Pain, Mild (Pain Scale 1-3) Last Admin: 03/15/23 07:41 Dose: 650 mg Documented By: JOA-NN Morphine Sulfate (Morphine Sulfate 2 Mg/Ml Cartridge) 2 mg IVPUSH Q4H PRN; Protocol PRN Reason: Pain, Severe (Pain Scale 7-10) Last Admin: 03/13/23 14:01 Dose: 2 mg Documented By: JOVANNY Multivitamins/Vitamin C (Multivitamin Tablet) 1 tab PO DAILY [facility] Last Admin: 03/15/23 07:41 Dose: 1 tab Documented By: JO-ANN Oxycodone HCl (Oxycodone Hcl Immed Release 5 Mg Tablet) 5 mg PO Q4H PRN PRN Reason: Pain, Moderate(Pain Scale 4-6) Last Admin: 03/14/23 17:20 Dose: 5 mg Documented By: MARCIN Sodium Chloride (0.9 % Sodium Chloride Flush 3 Ml Syringe) 3 ml IVFLUSH QSHIFT [facility] Last Admin: 03/14/23 21:00 Dose: 3 ml Documented By: PUJA Vitamin D (Cholecalciferol (Vitamin D3) 25 Mcg Tablet) 25 mcg PO DAILY [facility] Last Admin: 03/15/23 07:41 Dose: 25 mcg Documented By: JO-ANN Labs 03/15/23 09:03 03/15/23 05:59 Labs: Laboratory Results - last 24 hr 03/13/23 03/14/23 03/15/23 06:32 12:12 05:59 MCV 92.7 94.8 MCH 30.3 30.5 MCHC 32.7 32.2 RDW 14.1 14.4 Plt Count 100 L 71 L D MPV Not Reportable 11.1 Immature Gran % (Auto) 0.7 H Neut % (Auto) 73.7 H Lymph % (Auto) 13.9 L [place] % (Auto) 11.4 H Eos % (Auto) 0.1 Baso % (Auto) 0.2 Lymph # (Auto) 1.3 [place] # (Auto) 1.0 Eos # (Auto) 0.0 Baso # (Auto) 0.0 Abs Immat Gran (auto) 0.06 H Absolute Neuts (auto) 6.8 Absolute Nucleated RBC 0.000 0.000 Nucleated RBC % (auto) 0.0 0.0 Anion Gap Estim Creat Clear Calc Estimated GFR Random Glucose Calcium Phosphorus Magnesium Albumin Blood Type O Positive Antibody Screen NEGATIVE Crossmatch See Detail 03/15/23 03/15/23 05:59 09:03 MCV 93.8 MCH 30.1 MCHC 32.1 RDW 14.5 Plt Count 88 L MPV 10.9 Immature Gran % (Auto) 0.6 H Neut % (Auto) 78.6 H Lymph % (Auto) 11.2 L [place] % (Auto) 9.4 Eos % (Auto) 0.0 Baso % (Auto) 0.2 Lymph # (Auto) 1.1 L [place] # (Auto) 0.9 Eos # (Auto) 0.0 Baso # (Auto) 0.0 Abs Immat Gran (auto) 0.06 H Absolute Neuts (auto) 7.7 Absolute Nucleated RBC 0.000 Nucleated RBC % (auto) 0.0 Anion Gap 10 L Estim Creat Clear Calc 59.2 Estimated GFR > 60 Random Glucose 98 Calcium 8.5 Phosphorus 2.4 L Magnesium 2.2 Albumin 3.3 L Blood Type Antibody Screen Crossmatch Assessment and Plan (1) Hypertension: Status: Acute Plan 67 year old women admitted by vascular surgery for AAA repair Acute blood loss anemia, unspecified 2 units PRBC ordered check HH post transfusion and tx as necessary abd CT surgical changes noted may also be from hematoma tachycardia likely from acute blood loss anemia transfuse and follow Thrombocytopenia ? of HIT, discussed with ICU, less likely, heparin only during surgical procedure seems more from acute blood loss follow closely Elective endovascular AAA repair management as per surgical team HTN stable BP hold amlodipine for now PVD onBB and asa at home DVT prophylaxis with SCD boots attending Dr. Bey Time Spent With Patient Time: Total time managing care of this patient today ____ minutes. Quality Stroke Does the patient have a stroke diagnosis?: No VTE Prior VTE?: No VTE Risk Level:: Medical - moderate - high VTE Device Contraindication: N/A - Device Ordered VTE Drug Contraindication: Treatment Not Tolerated
[2023-03-15] MEDS: iohexoL 350 MG/ML 100 ML INFUS..BTL IV (11:31)
--- NOTE | 2023-03-15 15:31 | P.CNHO_ITS ---
Subjective - Subjective Chief complaint: None reported Patient: new to practice Consult date: 03/15/23 Primary Care Provider: Anjelica Keith MD HPI - Consult Narrative Reason for consult: Thrombocytopenia Narrative: Mindy Blanchard is a 67 year old female who underwent endovascular aneurysm repair on 03/13/2023. She developed right thigh hematoma postoperatively and had a drop in hemoglobin that necessitated transfusion of 2 units PRBC. Her preoperative hemoglobin was 12.5 gram/dL which reached a raya of 6.5 gram/dL on 03/15/2023. Platelet count preoperatively was 144 K which dropped to 71 K on postoperative day 2. She received heparin only in the OR. She offers no complaints such as pain or swelling in any extremity, no pleuritic chest pain, fever, shortness of breath or cough. Her coagulation tests are normal. She is responding appropriately to blood transfusion. She is not on any other medications that can cause thrombocytopenia. Review of Systems - Cardiovascular Reports no additional cardiovascular complaints - Respiratory Reports no additional respiratory complaints - Gastrointestinal Reports no additional gastrointestinal complaints - Neurologic Reports hearing normal, Denies memory loss, Denies seizure-like activity [facility] Medical History: Medical History (Last Reviewed 03/13/23 @ 12:24 by Melonie Benavides RN) Hypertension Family History: Family History (Last Updated 02/09/23 @ 14:33 by ALEX Carmichael) Father Diabetes Hypertension Mother No problems noted. Surgical History: Surgical History (Last Reviewed 03/13/23 @ 12:24 by Melonie Benavides RN) Hx of colonoscopy Hx of eye surgery Social History: Social History (Last Updated 02/09/23 @ 14:34 by ALEX Carmichael) Living Situation History: Household Members: None Housing: Apartment Are you a primary managed care manager to a significant other at home: No Do you presently have visiting nurse or other home services: No Tobacco History: Patient Tobacco Use Status: Never used Tobacco Home Medications and Allergies Current Medications: Current Medications Acetaminophen (Acetaminophen 325 Mg Tablet) 650 mg PO Q6H PRN PRN Reason: Pain, Mild (Pain Scale 1-3) Last Admin: 03/15/23 07:41 Dose: 650 mg Morphine Sulfate (Morphine Sulfate 2 Mg/Ml Cartridge) 2 mg IVPUSH Q4H PRN; Protocol PRN Reason: Pain, Severe (Pain Scale 7-10) Last Admin: 03/13/23 14:01 Dose: 2 mg Multivitamins/Vitamin C (Multivitamin Tablet) 1 tab PO DAILY [facility] Last Admin: 03/15/23 07:41 Dose: 1 tab Oxycodone HCl (Oxycodone Hcl Immed Release 5 Mg Tablet) 5 mg PO Q4H PRN PRN Reason: Pain, Moderate(Pain Scale 4-6) Last Admin: 03/14/23 17:20 Dose: 5 mg Sodium Chloride (0.9 % Sodium Chloride Flush 3 Ml Syringe) [facility] Last Admin: 03/15/23 10:21 Dose: Not Given Vitamin D (Cholecalciferol (Vitamin D3) 25 Mcg Tablet) 25 mcg PO DAILY [facility] Last Admin: 03/15/23 07:41 Dose: 25 mcg Home Medications Medication Instructions Recorded Confirmed Type amlodipine 10 mg tablet 10 mg PO DAILY 02/09/23 03/03/23 History metoprolol tartrate 50 mg tablet 50 mg PO DAILY 02/09/23 03/03/23 History multivitamin 1 tab PO DAILY 02/09/23 03/03/23 History cholecalciferol (vitamin D3) 25 25 mcg PO DAILY 03/02/23 03/03/23 History mcg (1,000 unit) chewable tablet magnesium 250 mg tablet 250 mg PO DAILY 03/02/23 03/03/23 History potassium 95 mg tablet 90 mg PO DAILY 03/03/23 03/03/23 History Allergies Allergy/AdvReac Type Severity Reaction Status Date / Time Sulfa (Sulfonamide Allergy Severe Rash Verified 02/09/23 14:30 Antibiotics) Physical Exam Vital signs: Vital Signs Temp 98.2 F 03/15/23 15:21 Pulse 106 H 03/15/23 15:21 Resp 16 03/15/23 15:21 BP 143/68 H 03/15/23 15:21 Pulse Ox 100 03/15/23 11:14 O2 Del Method Room Air 03/15/23 11:14 O2 Flow Rate 2 03/13/23 11:35 Intake & Output 03/14/23 03/15/23 03/15/23 18:59 06:59 18:59 Intake Total 506 / 746 240 / 746 0 / 0 Output Total 110 / 110 Balance 396 / 636 240 / 636 0 / 0 Urine Output (Average ml/kg/hr) 0.15 0.15 0.15 Intake: Intake, Oral Amount 506 / 746 240 / 746 Intake (Blood Product) Amount 0 / 0 Red Blood Cells (E0336) Unit 0 / 0 [id number] Red Blood Cells (E0336) Unit 0 / 0 [id number] Intake, IV Amount 0 / 0 0 / 0 Norepinephrine Bitartrate/D5W 8 0 / 0 mg In 250 ml @ Per Protocol IV .Q0M DONAL Rx#:[id number] Lactated Ringers 1,000 ml @ 100 0 / 0 mls/hr IVCONT .Q10H DONAL Rx#: [id number] Output: Output, Urine Amount 0 / 0 Output, Urine Amount (Catheter) 110 / 110 2-way Urethral 110 / 110 Other: Lunch % Eaten 75% Number of Unmeasured Voids 2 1 3 Number of Bowel Movements 0 Urine Bathroom Bathroom Bathroom Urine Color Pale Yellow Last Bowel Movement 03/12/23 Weight 62.4 kg - Routine HEENT Exam Head: Present: normal inspection Eye: Present: normal appearance - Routine Respiratory Exam Present: CTAB - Routine Cardiovascular Exam Cardiovascular: Present: S1, S2 - Routine Skin Exam Present: intact. Absent: petechiae, rash Hem/Onc Consult Result - Labs CBC & Chem 7: 03/16/23 06:12 03/16/23 06:12 Labs: Short CBC 03/15/23 03/15/23 Range/Units 05:59 09:03 WBC 9.2 9.8 (4.8-10.8) X10*3/uL Hgb 6.5 L* D 6.8 L* (12.0-16.0) g/dl Hct 20.2 L* D 21.2 L (37.0-47.0) % Plt Count 71 L D 88 L (160-400) X10*3/uL BMP 03/15/23 05:59 Sodium 139 Potassium 4.3 Chloride 108 Carbon Dioxide 25 BUN 15 Creatinine 0.76 Calcium 8.5 Liver Function 03/15/23 Range/Units 05:59 Albumin 3.3 L (3.5-5.0) g/dL Assessment and Plan Patient Active problem list reviewed?: Yes (1) Thrombocytopenia Status: Acute Assessment and plan: 1. This is a 67-year-old Ukrainian-speaking woman admitted after elective e ndovascular AAA repair. She was noted to have thrombocytopenia and consultation was called to rule out heparin induced thrombocytopenia, HIT. Her platelet count preoperatively was 142 K which was on 03/13/2023, on 03/14/2023 her platelet counts dropped to 100 K and on 03/15/2023 down to a raya of 71 K. Her hemoglobin has dropped from 12 gram/dL to 6.5 gram/dL postoperatively. She just got 1 dose of heparin on 03/13/2023 in the OR. Check kidney and liver functions are normal. No evidence of DIC. The trend in decline in platelet count is not consistent with heparin-induced thrombocytopenia. Most likely related to surgical blood loss. No signs of limb ischemia, fever or medications that can cause thrombocytopenia. No further workup or intervention is necessary as a platelet counts are improv ing. I thank you for the consultation. - Time Spent With Patient Time Spent with Patient (in minutes): 15
[2023-03-16 03:29] VITALS: BP 118/62; PULSE 76; RESP 20; TEMP 36.1; O2SAT 98
[2023-03-16 06:32] LABS: MANUAL DIFF FLAG NO
[2023-03-16 06:40] LABS: Basophils Percent Auto 0.2 % (0-2); Eosinophils Absolute Auto 0.1 X10*3/uL (0.0-0.4); Eosinophils Percent Auto 0.5 % (0-4); Hematocrit 29.6 % (37.0-47.0); Hemoglobin 9.9 g/dl (12.0-16.0); Imm Gran Abs Auto 0.06 X10*3/uL (0.00-0.03); Imm Gran Pct Auto 0.6 % (0.0-0.4); Lymphocytes Absolute Auto 1.7 X10*3/uL (1.2-4.9); Lymphocytes Percent Auto 16.6 % (20-40); Mean Corpuscular HGB Conc 33.4 g/dl (31.0-35.0); Mean Corpuscular Hemoglobin 30.9 pg (27.0-33.0); Mean Corpuscular Volume 92.5 fL (80.0-98.0); Mean Platelet Volume 11.1 fL (9.4-12.3); Monocytes Percent Auto 9.8 % (2-11); Neutrophils Absolute Auto 7.2 x10*3/uL (2.0-8.3); Neutrophils Percent Auto 72.3 % (45-73); Red Cell Distribution Width 13.7 % (11.0-16.0)
[2023-03-16 06:41] LABS: Platelet Count 85 X10*3/uL (160-400)
[2023-03-16 07:03] LABS: Anion Gap 11 (12-20); Blood Urea Nitrogen 13 mg/dL (9-16); Carbon Dioxide 25 mmol/L (22-29); Chloride 110 mmol/L (96-108); Creatinine Clr Calc Pharmacy 67.2; Estimated Glomerular Filt Rate > 60; Glucose Random 93 mg/dL (60-115); Potassium 3.9 mmol/L (3.3-5.1); Sodium 142 mmol/L (135-145)
[2023-03-16 07:40] VITALS: O2SAT 98
[2023-03-16 07:42] VITALS: BP 119/62; PULSE 93; RESP 19; TEMP 37.2; O2SAT 98
[2023-03-16] MEDS: 0.9 % Sodium Chloride Flush 3 ML SYRINGE IVFLUSH (09:03)
[2023-03-16] MEDS: Multivitamin TABLET 1 TAB PO (09:05)
[2023-03-16] MEDS: Cholecalciferol (Vitamin D3) 25 MCG TABLET PO (09:05)
--- NOTE | 2023-03-16 10:02 | PM.DS ---
DS: Providers Provider Date of Service: 03/16/23 Date of admission: 03/13/23 05:59 Primary care physician: Anjelica Keith MD Consults: 03/14/23 09:05 Consult to Hospitalist Routine Comment: Consulting Provider: Hospitalist Reason For Exam: Medical co-management with vascular surgery 03/15/23 08:01 Consult to Hematology / Oncology Routine Consulting Provider: Liane Payne Reason for consultation: PEREZ eval Has provider been notified: No DS: Diagnosis Discharge Diagnosis (1) Thrombocytopenia: Status: Acute (2) Hypertension: Status: Acute (3) S/P AAA repair: Status: Acute (4) AAA (abdominal aortic aneurysm) without rupture: Status: Acute DS: Summary Hospital Course Hospital Course: Patient underwent endovascular aneurysm repair on MondayMarch 13 with an Endologix a FX 2 graft. Postoperatively did well 1 was observed overnight. She did have a slight drop in hemoglobin but overall appear to be stable and she did develop a small right thigh hematoma which did appear to stabilize as well. She was subsequently transferred up to the floor in upon ambulation she started to have an increase in that hematoma. Her hemoglobin did drop. Of note her platelet count dropped as well. She was subsequently observed and then transfuse 2 units. She also underwent a CT angiogram which had no other significant finding. She was in stable condition and subsequently discharged on postop day 3 Status at Discharge Functional status at discharge: independent ambulation Overall status at discharge: patient is back to baseline Time Spent with Patient Time attestation: Total time managing care of this patient today ____ minutes. Discharge coordination time: Greater than 30 minutes Quality: Safe Use of Opioids Does Pt have an Active Cancer Diagnosis on the Problem List?: No Quality: Stroke Does the patient have a stroke diagnosis?: No Physical Exam Vital Signs: Vital Signs: Last Vital Signs Temp 98.9 F 03/16/23 07:42 Pulse 93 03/16/23 07:42 Resp 19 03/16/23 07:42 BP 119/62 03/16/23 07:42 Pulse Ox 98 03/16/23 07:42 O2 Del Method Room Air 03/16/23 07:42 O2 Flow Rate 2 03/13/23 11:35 BMI result Body Mass Index 26.9 Const: General: cooperative, healthy appearing and no acute distress Orientation/consciousness: oriented to person, oriented to place and oriented to time HEENT: Head: Yes normal to inspection Neck: Carotids: no bruits Chest: Chest palpation & inspection: normal inspection of the chest Resp: Effort & Inspection: normal respiratory effort and able to speak in complete sentences Auscultation: clear to auscultation bilaterally Cardio: Rate: regular rate Heart sounds: S1 normal heart sound present and S2 normal heart sound present GI: Inspection: Yes normal to inspection Skin: Other: Right groin hematoma General skin exam: no rashes or lesions noted Wounds: no wounds Neuro: General: oriented to person, oriented to place, oriented to time and CN's II-XI intact bilaterally Extrem: General: Yes normal to inspection, Yes full ROM and Yes no clubbing, cyanosis or edema Psych: Appearance: grossly normal and well kempt Speech and movement: Normal speech and movement present Affect: normal affect DS: Data Data Completed and Pending Labs on day of discharge: Laboratory Results - last 24 hr 03/13/23 03/16/23 03/16/23 06:32 06:12 06:12 WBC 10.0 RBC 3.20 L D Hgb 9.9 L D Hct 29.6 L D MCV 92.5 MCH 30.9 MCHC 33.4 RDW 13.7 Plt Count 85 L MPV 11.1 Immature Gran % (Auto) 0.6 H Neut % (Auto) 72.3 Lymph % (Auto) 16.6 L [place] % (Auto) 9.8 Eos % (Auto) 0.5 Baso % (Auto) 0.2 Lymph # (Auto) 1.7 [place] # (Auto) 1.0 Eos # (Auto) 0.1 Baso # (Auto) 0.0 Abs Immat Gran (auto) 0.06 H Absolute Neuts (auto) 7.2 Absolute Nucleated RBC 0.000 Nucleated RBC % (auto) 0.0 Sodium 142 Potassium 3.9 Chloride 110 H Carbon Dioxide 25 Anion Gap 11 L BUN 13 Creatinine 0.67 Estim Creat Clear Calc 67.2 Estimated GFR > 60 Random Glucose 93 Calcium 9.0 Blood Type O Positive Antibody Screen NEGATIVE Crossmatch See Detail Discharge Plan Discharge Anticipated Discharge Date/Time: 03/16/23 09:57 Patient Disposition: Home, Self-Care Discharge Diagnosis: Status post endovascular aneurysm repair Referrals: Anjelica Keith MD [Primary Care Provider] - 1 Week Discharge Medications: New oxycodone-acetaminophen [Percocet] 5-325 mg tablet 1 tab PO Q8H PRN (Reason: pain) Qty: 10 0RF Rx Instructions: Partial Fill upon patient request. Continued magnesium 250 mg Tablet 250 mg PO DAILY cholecalciferol (vitamin D3) 25 mcg (1,000 unit) Tablet,Chewable 25 mcg PO DAILY potassium 95 mg Tablet 90 mg PO DAILY multivitamin Tablet 1 tab PO DAILY amlodipine 10 mg tablet 10 mg PO DAILY metoprolol tartrate 50 mg tablet 50 mg PO DAILY Discontinued aspirin 81 mg tablet,delayed release (DR/EC) 81 mg PO DAILY Discharge Orders: Discharge Order (Routine); Ordered 03/16/23 Ordered By: Guicho Conti Diet: Advance to usual diet Activity on Discharge: As tolerated Stand Alone Forms: Patient Portal Discharge page Activity Restrictions/Additional Instructions: you may shower as early as tomorrow. Take it easy today and you may ambulate around the house. Within 24 hours you can resume normal activity You may climb a flight of stairs as tolerated Do not lift anything heavier than a gallon of milk See Dr. Conti in follow-up in approximately 2 weeks time. You should already have an appointment if not please call my office at [phone] Please stop aspirin for now. Please use Percocet as needed for pain If you notice excessive bleeding from the groin please immediately call my office or return to the emergency room. Care Plan Goals: Follow-up aneurysm Health Concerns: Abdominal aortic aneurysm Plan of Treatment: Status post aneurysm repair Assessment: Abdominal aortic aneurysm
--- NOTE | 2023-03-16 10:39 | MHC.CM.PN ---
EMR reviewed and per MD rounds, pt medically cleared for D/C home self-care, family will transport her home.
== END 2023-03-16 11:30 | disposition home or self-care (01) | DRG 269 ==
LOC: HO.SSSA 06:51 → HO.ICU 11:03 → HO.IMC 03-14 09:36
PROVIDERS: Internal Medicine Pulmonary Disease; Nurse Practitioner; Nurse Practitioner Acute Care; Physician Assistant Medical; Admitting Provider Surgery Vascular Surgery; PCP Student in an Organized Health Care Education/Training Program; Visit Provider Surgery Vascular Surgery
PROC: 04V03ZZ Restriction of Abdominal Aorta, Percutaneous Approach (ICD-10-PCS; principal; 2023-03-13 07:30)
DX: I71.40 Abdominal aortic aneurysm, without rupture, unspecified (principal); D62 Acute posthemorrhagic anemia; I97.638 Postprocedural hematoma of a circulatory system organ or structure following other circulatory system procedure; D69.59 Other secondary thrombocytopenia; I10 Essential (primary) hypertension; Y83.8 Other surgical procedures as the cause of abnormal reaction of the patient, or of later complication, without mention of misadventure at the time of the procedure; Z20.822 Contact with and (suspected) exposure to COVID-19; Z88.2 Allergy status to sulfonamides; Z79.899 Other long term (current) drug therapy
CPT/HCPCS: 36415; 36600; 74174; 80048; 80053; 82040; 82803; 83735; 84100; 85025; 85027; 85610; 85730; 86850; 86900; 86901; 86923; 87635; C1758; C1760; C1768; C1769; C1887; C1894; J0690; J1100; J1643; J2250; J2270; J2370; J2405; J2795; J3010; P9016; Q9967

== ENCOUNTER → 2023-03-28 12:50 | Outpatient (BNVA) | payer OTHER, SELFPAY | PROVIDERS: PCP Student in an Organized Health Care Education/Training Program; Visit Provider Surgery Vascular Surgery | DX: L76.32 Postprocedural hematoma of skin and subcutaneous tissue following other procedure (principal); Z86.79 Personal history of other diseases of the circulatory system | CPT/HCPCS: 99212 ==

== ENCOUNTER 2023-04-18 12:44 | Outpatient (AMB) | payer OTHER, SELFPAY ==
--- NOTE | 2023-04-18 12:58 | A.OFFVIS_ITS ---
Intake Intake Visit Reasons: 3 week groin check Intake Note: Patient is here for a 3 week groin check, patient stated the incision is slowly healing, she still has bruising and pins and needles sensation. Corporate Banking Officer Required: Yes Corporate Banking Officer Name: Kristie ROBLES Allergies Sulfa (Sulfonamide Antibiotics) Allergy (Severe, Verified 04/18/23 13:03) Rash HPI 3 week groin check HPI Details Very pleasant 67-year-old female presents for follow-up status post endovascular aneurysm repair. She did require a significant right groin hematoma. It appears to be resolving. She does have some numbness but that seems to be resolving as well. She now presents for routine follow-up. [facility] Medical History Hypertension Surgical History Hx of colonoscopy Hx of eye surgery Family History Father Diabetes Hypertension Mother No problems noted. Social History Household Members: None Housing: Apartment Are you a primary care asst to a significant other at home: No Do you presently have visiting nurse or other home services: No Patient Tobacco Use Status: Never used Tobacco Review of Systems Const All systems reviewed & are unremarkable except as noted in HPI and below Reports no additional complaints ENT Reports Normal hearing present Card Denies chest pain, Denies chest pain at rest, Denies chest pain with activity and Denies pedal edema Resp Denies cough GI Denies abdominal pain Musc Denies abnormal gait, Denies muscle cramps and Denies radiating pain into limb Skin/Breast Denies skin ulcer and Denies wounds Neuro Reports Normal hearing present and Denies abnormal gait Psych Reports no additional complaints Physical Exam Const General: cooperative, healthy appearing and comfortable Orientation/consciousness: oriented to person, oriented to place and oriented to time HEENT Head: Yes normal to inspection Neck Neck: Yes normal visual inspection Carotids: no bruits Chest Chest palpation & inspection: normal inspection of the chest Resp Effort & Inspection: normal respiratory effort and able to speak in complete sentences Auscultation: clear to auscultation bilaterally, no crackles, no rales, no rhonchi and no wheezes Cardio Rate: regular rate Rhythm: regular rhythm Heart sounds: S1 normal heart sound present and S2 normal heart sound present Bruits: no carotid bruits Peripheral pulses: Peripheral pulses 2+ throughout GI Inspection: Yes normal to inspection Skin Other: Right groin hematoma resolved Wounds: no wounds Hair: normal Neuro General: oriented to person, oriented to place and oriented to time Cranial nerves: Yes CN's II-XII intact bilaterally and Yes Normal hearing pr esent Cognition (Neuro): normal cognition Motor exam (neuro): 5/5 motor strength present throughout Extrem Other: venous exam: No significant superficial varicosities or spider telangiectasias, minimal edema General: No clubbing, No cyanosis and No edema Psych Appearance: grossly normal Mental Status: mental status grossly normal Speech and movement: Normal speech and movement present Assessment & Plan Assessment & Plan (1) AAA (abdominal aortic aneurysm) without rupture: Comment: 03/13/2023 - endovascular aortic aneurysm repair with Endologix AFX 2 device Code(s): I71.40 - Abdominal aortic aneurysm, without rupture, unspecified Plan: In short patient is doing extremely well status post endovascular aneurysm repair we will plan for [address] scan. Should there be any interval issues happy to see her back sooner. Thank you for allowing us to assist in her care. Orders: Orders Blood Urea Nitrogen 3 Months I71.40 - Abdominal aortic aneurysm, without rupture, unspecified Creatinine 3 Months I71.40 - Abdominal aortic aneurysm, without rupture, unspecified CT angio abdomen pelvis 3 Months I71.40 - Abdominal aortic aneurysm, without rupture, unspecified Coding Level of Care Code Est Pt Level 4 (62446) Diagnoses AAA (abdominal aortic aneurysm) without rupture I71.40
== END 2023-04-18 13:38 | disposition home or self-care (01) ==
PROVIDERS: PCP Student in an Organized Health Care Education/Training Program; Visit Provider Surgery Vascular Surgery
DX: I71.40 Abdominal aortic aneurysm, without rupture, unspecified (principal)
CPT/HCPCS: 99213

== ENCOUNTER → 2023-04-18 12:44 | Outpatient (BNVA) | payer OTHER, SELFPAY | PROVIDERS: PCP Student in an Organized Health Care Education/Training Program; Visit Provider Surgery Vascular Surgery ==

== ENCOUNTER 2023-06-20 08:51 | Outpatient (REF) | payer OTHER, SELFPAY ==
[2023-06-20 15:52] LABS: Alanine Aminotransferase 12 U/L (0-31); Albumin Level 4.5 g/dL (3.5-5.0); Alkaline Phosphatase 96 U/L (39-117); Anion Gap 12 (12-20); Aspartate Amino Transferase 21 U/L (5-31); Bilirubin Direct 0.1 mg/dL (0.0-0.5); Bilirubin Total 0.3 mg/dL (0.0-1.0); Blood Urea Nitrogen 21 mg/dL (9-16); Carbon Dioxide 26 mmol/L (22-29); Chloride 106 mmol/L (96-108); Cholesterol 250 mg/dL (<200); Estimated Glomerular Filt Rate > 60; Glucose Fasting 85 mg/dL (60-99); HDL Cholesterol 58 mg/dL (>40); LDL Cholesterol Calculated 172 mg/dL (<100); Potassium 3.8 mmol/L (3.3-5.1); Sodium 140 mmol/L (135-145); Total Protein 8.5 g/dL (6.5-8.0); Triglycerides 100 mg/dL (<150)
== END 2023-06-20 08:52 | disposition home or self-care (01) ==
LOC: HO.CHCLDS 08:51
PROVIDERS: Visit Provider Student in an Organized Health Care Education/Training Program
DX: I10 Essential (primary) hypertension (principal)
CPT/HCPCS: 36415; 80048; 80061; 80076

== ENCOUNTER 2023-08-18 07:32 | Outpatient (REF) | payer OTHER, SELFPAY ==
--- NOTE | ~2023-08-18 | CT_ITS ---
EXAMINATION: CTA ABDOMEN AND PELVIS CLINICAL INFORMATION: Abdominal aortic aneurysm without rupture TECHNIQUE: Multiple axial images were obtained through the abdomen and pelvis before and after administration of 85 mL of Omnipaque 350 intravenously. Images were evaluated on independent dedicated 3-D workstation and 3-D images were reconstructed with concurrent radiologist supervision and subsequently interpreted. Specific vascular measurements are placed directly on the 3-D rendered images and are documented and stored in PACS. This CT examination was performed using dose optimization techniques as appropriate, variously including the following: *Automated exposure control. *Adjustment of mA and/or kV according to patient size (this includes techniques or standardized protocols for targeted exams where dose is matched to indication/reason for exam, i.e., extremities or head). *Use of iterative reconstruction technique. COMPARISON: CTA abdomen and pelvis 04/14/2023 DLP: 283 mGy-cm. FINDINGS: VASCULAR: Abdominal aorta: Status post abdominal aortic endograft placement. The aneurysm sac measures up to 5.2 x 4.8 cm, previously 5.1 x 4.7. No contrast enhancement within the aneurysm sac to suggest endoleak. Iliac arteries: Patent and normal in caliber Mesenteric arteries: The celiac artery is patent. The left hepatic artery is replaced to the left gastric artery. Renal arteries: Patent renal arteries bilaterally NONVASCULAR: Lung Bases: The lungs are clear with no evidence of inflammation or nodules. Liver, Gallbladder, Biliary Tree: The liver is normal in size, shape, and attenuation. No focal hepatic lesion or biliary ductal dilatation is present. The gallbladder is unremarkable with no evidence of radiopaque gallstones, gallbladder wall thickening, or pericholecystic inflammatory changes. Pancreas: Unremarkable. Spleen: Unremarkable. Adrenal Glands: Unremarkable. Kidneys and Ureters: The kidneys are normal in size, shape, and attenuation. No hydronephrosis or hydroureter or calculi seen. No perinephric stranding. Multiple bilateral renal cysts appear unchanged, and require no further imaging follow-up. Bladder: Unremarkable. Gastrointestinal Tract: Colonic diverticulosis. The large and small bowel are normal in caliber. Abdominal Wall: Right groin hematoma has nearly resolved. Lymph Nodes: Normal. Pelvic Viscera: Unremarkable. Osseous Structures: Unremarkable. CT/CT angio abdomen pelvis IMPRESSION: Status post abdominal aortic endograft placement. Aneurysm sac is stable in size. No contrast enhancement within the sac to suggest endoleak.
[2023-08-18 13:40] LABS: Creatinine POC 0.8 mg/dL (0.5-1.4); GFR POC > 60
== END 2023-08-18 07:33 | disposition home or self-care (01) ==
LOC: HO.CT 07:32
PROVIDERS: PCP Student in an Organized Health Care Education/Training Program; Visit Provider Surgery Vascular Surgery
DX: I71.40 Abdominal aortic aneurysm, without rupture, unspecified (principal)
CPT/HCPCS: 74174; 82565

== ENCOUNTER 2023-08-22 12:57 | Outpatient (AMB) | payer OTHER, SELFPAY ==
--- NOTE | 2023-08-22 13:01 | A.OFFVIS_ITS ---
Intake Intake Visit Reasons: fallow 08/18/23 CTA, Intake Note: 3 mo follow up AAA repair 03/13/23 s/p CTA Abdb& pelvis 08/18/23. Pt states that she has swelling in her Right LE and numbness on her inner thigh since the surgery. Hematoma is still decreasing in size. Drone Software Development Engineer Required: Yes Drone Software Development Engineer Language: Director Medical Surgical Name: Edwina [id number] Information Interpreted: clinical only Allergies Sulfa (Sulfonamide Antibiotics) Allergy (Severe, Verified 08/22/23 13:08) Rash HPI fallow 08/18/23 CTA, HPI Details Very pleasant 67-year-old female presents for follow-up status post endovascular repair in March of 2023 of her aortic aneurysm. She reports no postprocedure issues at the current time. She did have a postop hematoma in appears to be doing relatively well. She now presents for routine follow-up with CT angiogram [facility] Medical History Hypertension Surgical History Hx of colonoscopy Hx of eye surgery Family History Father Diabetes Hypertension Mother No problems noted. Household Members: None Housing: Apartment Are you a primary healthcare social worker to a significant other at home: No Do you presently have visiting nurse or other home services: No Patient Tobacco Use Status: Never used Tobacco Review of Systems Const All systems reviewed & are unremarkable except as noted in HPI and below Reports no additional complaints ENT Reports Normal hearing present Card Denies chest pain, Denies chest pain at rest, Denies chest pain with activity and Denies pedal edema Resp Denies cough GI Denies abdominal pain Musc Denies abnormal gait, Denies muscle cramps and Denies radiating pain into limb Skin/Breast Denies skin ulcer and Denies wounds Neuro Reports Normal hearing present and Denies abnormal gait Psych Reports no additional complaints Physical Exam Const General: cooperative, healthy appearing and comfortable Orientation/consciousness: oriented to person, oriented to place and oriented to time HEENT Head: Yes normal to inspection Neck Neck: Yes normal visual inspection Carotids: no bruits Chest Chest palpation & inspection: normal inspection of the chest Resp Effort & Inspection: normal respiratory effort and able to speak in complete sentences Auscultation: clear to auscultation bilaterally, no crackles, no rales, no rhonchi and no wheezes Cardio Rate: regular rate Rhythm: regular rhythm Heart sounds: S1 normal heart sound present and S2 normal heart sound present Bruits: no carotid bruits Peripheral pulses: Peripheral pulses 2+ throughout GI Inspection: Yes normal to inspection Skin Wounds: no wounds Hair: normal Neuro General: oriented to person, oriented to place and oriented to time Cranial nerves: Yes CN's II-XII intact bilaterally and Yes Normal hearing present Cognition (Neuro): normal cognition Motor exam (neuro): 5/5 motor strength present throughout Extrem Other: venous exam: No significant superficial varicosities or spider telangiectasias, minimal edema General: No clubbing, No cyanosis and No edema Psych Appearance: grossly normal Mental Status: mental status grossly normal Speech and movement: Normal speech and movement present Results Reviewed Results Reviewed: CT angiogram dated 08/18/2023 demonstrates no evidence endoleak. Written report and images were reviewed Assessment & Plan Assessment & Plan (1) AAA (abdominal aortic aneurysm) without rupture: Comment: 03/13/2023 - endovascular aortic aneurysm repair with Endologix AFX 2 device Code(s): I71.40 - Abdominal aortic aneurysm, without rupture, unspecified Qualifiers: Abdominal aorta location: infrarenal aorta Qualified Code(s): I71.43 - Infrarenal abdominal aortic aneurysm, without rupture Plan: In short patient has stable aneurysm with endograft. CT scan does demonstrate appropriate placement of endograft with no evidence of endoleak. We did discuss routine risk factor modification and the patient will follow up with us in approximately 6 months time for routine surveillance. Thank you for allowing us to assist in her care. Orders: Orders Blood Urea Nitrogen 6 Months I71.43 - Infrarenal abdominal aortic aneurysm, without rupture CT angio abdomen pelvis 6 Months I71.43 - Infrarenal abdominal aortic aneurysm, without rupture Creatinine 6 Months I71.43 - Infrarenal abdominal aortic aneurysm, without rupture Coding Level of Care Code Est Pt Level 4 (04374) Diagnoses Infrarenal abdominal aortic aneurysm (AAA) without rupture I71.43 Abdominal aorta location: infrarenal aorta
== END 2023-08-22 13:33 | disposition home or self-care (01) ==
PROVIDERS: PCP Student in an Organized Health Care Education/Training Program; Visit Provider Surgery Vascular Surgery
DX: I71.43 Infrarenal abdominal aortic aneurysm, without rupture (principal)
CPT/HCPCS: 99213

== ENCOUNTER → 2023-08-22 12:57 | Outpatient (BNVA) | payer OTHER, SELFPAY | PROVIDERS: PCP Student in an Organized Health Care Education/Training Program; Visit Provider Surgery Vascular Surgery | DX: I71.43 Infrarenal abdominal aortic aneurysm, without rupture (principal); I10 Essential (primary) hypertension | CPT/HCPCS: 99212 ==

== ENCOUNTER 2024-02-20 08:28 | Outpatient (REF) | payer OTHER, SELFPAY ==
--- NOTE | ~2024-02-20 | CT_ITS ---
EXAMINATION: CTA ABDOMEN AND PELVIS CLINICAL INFORMATION: Abdominal aortic aneurysm without rupture TECHNIQUE: Multiple axial images were obtained through the abdomen and pelvis before and after administration of 70 mL of Omnipaque 350 intravenously. Images were evaluated on independent dedicated 3-D workstation and 3-D images were reconstructed with concurrent radiologist supervision and subsequently interpreted. Specific vascular measurements are placed directly on the 3-D rendered images and are documented and stored in PACS. This CT examination was performed using dose optimization techniques as appropriate, variously including the following: *Automated exposure control. *Adjustment of mA and/or kV according to patient size (this includes techniques or standardized protocols for targeted exams where dose is matched to indication/reason for exam, i.e., extremities or head). *Use of iterative reconstruction technique. COMPARISON: CTA abdomen and pelvis August 18, 2023 DLP: 274 mGy-cm. FINDINGS: VASCULAR: Abdominal aorta: Status post abdominal aortic endograft placement. The aneurysm sac measures up to 4.3 x 3.7 cm, previously 5.2 x 4.8 cm. No contrast enhancement within the aneurysm sac to suggest endoleak. Iliac arteries: Patent and normal in caliber Mesenteric arteries: The celiac artery is patent. The left hepatic artery is replaced to the left gastric artery. Renal arteries: Patent renal arteries bilaterally NONVASCULAR: Lung Bases: The lungs are clear with no evidence of inflammation or nodules. Liver, Gallbladder, Biliary Tree: The liver is normal in size, shape, and attenuation. No focal hepatic lesion or biliary ductal dilatation is present. The gallbladder is unremarkable with no evidence of radiopaque gallstones, gallbladder wall thickening, or pericholecystic inflammatory changes. Pancreas: Unremarkable. Spleen: Unremarkable. Adrenal Glands: Unremarkable. Kidneys and Ureters: The kidneys are normal in size, shape, and attenuation. No hydronephrosis or hydroureter or calculi seen. No perinephric stranding. Multiple bilateral renal cysts appear unchanged, and require no further imaging follow-up. Bladder: Unremarkable. Gastrointestinal Tract: Colonic diverticulosis. The large and small bowel are normal in caliber. Abdominal Wall: Right groin hematoma has resolved. Lymph Nodes: Normal. Pelvic Viscera: Unremarkable. Osseous Structures: Unremarkable. CT/CT angio abdomen pelvis IMPRESSION: Status post abdominal aortic endograft placement. Aneurysm sac has regressed. No contrast enhancement within the sac to suggest endoleak.
[2024-02-20 09:49] LABS: Blood Urea Nitrogen 22 mg/dL (9-16); Estimated Glomerular Filt Rate > 60
[2024-02-20] MEDS: iohexoL 350 MG/ML 100 ML INFUS..BTL IV (10:22)
== END 2024-02-20 08:29 | disposition home or self-care (01) ==
LOC: HO.CT 08:28
PROVIDERS: PCP Student in an Organized Health Care Education/Training Program; Visit Provider Surgery Vascular Surgery
DX: I71.43 Infrarenal abdominal aortic aneurysm, without rupture (principal)
CPT/HCPCS: 36415; 74174; 82565; 84520; Q9967

== ENCOUNTER 2024-03-07 08:42 | Outpatient (AMB) | payer OTHER, SELFPAY ==
--- NOTE | 2024-03-07 08:58 | A.OFFVIS_ITS ---
Intake Visit Reasons: f/u AAA repair s/p CTA Abd/pelvis 02/20/24 Intake Note: Patient presents for follow up s/p 02/19 CTA abd & pelvis. She has no complaints. Accompanied by: Self / Same As Patient Allergies Sulfa (Sulfonamide Antibiotics) Allergy (Severe, Verified 03/07/24 09:00) Rash HPI HPI f/u AAA repair s/p CTA Abd/pelvis 02/20/24: Details: Very pleasant 60-year-old female presents for surveillance follow-up status post endovascular aneurysm repair. Her original repair was in March of 2023. She reports no postprocedure issues. She does have some mild numbness on the inner aspect of the thigh. Other than that she is doing fairly well. She now presents for routine follow-up with surveillance CT scan [facility] Medical History Hypertension Surgical History Hx of colonoscopy Hx of eye surgery Family History Father Diabetes Hypertension Mother No problems noted. Social History Household Members: None Housing: Apartment Are you a primary direct care staffer to a significant other at home: No Do you presently have visiting nurse or other home services: No Patient Tobacco Use Status: Never used Tobacco Review of Systems Const All systems reviewed & are unremarkable except as noted in HPI and below Reports no additional complaints ENT Reports Normal hearing present Card Denies chest pain, Denies chest pain at rest, Denies chest pain with activity and Denies pedal edema Resp Denies cough GI Denies abdominal pain Musc Denies abnormal gait, Denies muscle cramps and Denies radiating pain into limb Skin/Breast Denies skin ulcer and Denies wounds Neuro Reports Normal hearing present and Denies abnormal gait Psych Reports no additional complaints Physical Exam Const General: cooperative, healthy appearing and comfortable Orientation/consciousness: oriented to person, oriented to place and oriented to time HEENT Head: Yes normal to inspection Neck Neck: Yes normal visual inspection Carotids: no bruits Chest Chest palpation & inspection: normal inspection of the chest Resp Effort & Inspection: normal respiratory effort and able to speak in complete sentences Auscultation: clear to auscultation bilaterally, no crackles, no rales, no rhonchi and no wheezes Cardio Rate: regular rate Rhythm: regular rhythm Heart sounds: S1 normal heart sound present and S2 normal heart sound present Bruits: no carotid bruits Peripheral pulses: Peripheral pulses 2+ throughout GI Inspection: Yes normal to inspection Skin Wounds: no wounds Hair: normal Neuro General: oriented to person, oriented to place and oriented to time Cranial nerves: Yes CN's II-XII intact bilaterally and Yes Normal hearing present Cognition (Neuro): normal cognition Motor exam (neuro): 5/5 motor strength present throughout Extrem Other: venous exam: No significant superficial varicosities or spider telangiectasias, minimal edema General: No clubbing, No cyanosis and No edema Psych Appearance: grossly normal Mental Status: mental status grossly normal Speech and movement: Normal speech and movement present Results Reviewed Results Reviewed: CT scan results dated 02/20/2024 demonstrates aneurysm sac is down to 4.3 x 3.7 cm with no evidence of endoleak. Assessment & Plan Assessment & Plan (1) AAA (abdominal aortic aneurysm) without rupture: Comment: 03/13/2023 - endovascular aortic aneurysm repair with Endologix AFX 2 device Code(s): I71.40 - Abdominal aortic aneurysm, without rupture, unspecified Category: Medical Qualifiers: Abdominal aorta location: infrarenal aorta Qualified Code(s): I71.43 - Infrarenal abdominal aortic aneurysm, without rupture Plan: In short patient has stable endovascular aneurysm repair. She will be scheduled for annual surveillance CT scan. Thank you for allowing us to participate in her care. If there are any questions or concerns please do not hesitate to contact us. Orders: Orders Blood Urea Nitrogen 1 Year I71.43 - Infrarenal abdominal aortic aneurysm, without rupture Creatinine 1 Year I71.43 - Infrarenal abdominal aortic aneurysm, without ruptur e CT angio abdomen pelvis 1 Year I71.43 - Infrarenal abdominal aortic aneurysm, without rupture Coding Level of Care Code Est Pt Level 4 (29215) Diagnoses Infrarenal abdominal aortic aneurysm (AAA) without rupture I71.43 Abdominal aorta location: infrarenal aorta
== END 2024-03-07 09:53 | disposition home or self-care (01) ==
PROVIDERS: PCP Student in an Organized Health Care Education/Training Program; Visit Provider Surgery Vascular Surgery
DX: I71.43 Infrarenal abdominal aortic aneurysm, without rupture (principal)
CPT/HCPCS: 99213

== ENCOUNTER → 2024-03-07 08:42 | Outpatient (BNVA) | payer OTHER, SELFPAY | PROVIDERS: PCP Student in an Organized Health Care Education/Training Program; Visit Provider Surgery Vascular Surgery | DX: I71.43 Infrarenal abdominal aortic aneurysm, without rupture (principal) | CPT/HCPCS: 99212 ==

== ENCOUNTER 2024-07-02 08:01 | Outpatient (REF) | payer OTHER, SELFPAY ==
[2024-07-02 14:41] LABS: Alanine Aminotransferase 10 U/L (0-31); Albumin Level 4.4 g/dL (3.5-5.0); Alkaline Phosphatase 101 U/L (39-117); Anion Gap 13 (12-20); Aspartate Amino Transferase 21 U/L (5-31); Bilirubin Direct 0.1 mg/dL (0.0-0.5); Bilirubin Total 0.4 mg/dL (0.0-1.0); Blood Urea Nitrogen 25 mg/dL (9-16); Carbon Dioxide 27 mmol/L (22-29); Chloride 107 mmol/L (96-108); Cholesterol 238 mg/dL (<200); Estimated Glomerular Filt Rate 58; Glucose Random 85 mg/dL (60-115); HDL Cholesterol 49 mg/dL (>40); LDL Cholesterol Calculated 165 mg/dL (<100); Potassium 4.6 mmol/L (3.3-5.1); Sodium 142 mmol/L (135-145); Total Protein 8.2 g/dL (6.5-8.0); Triglycerides 123 mg/dL (<150)
== END 2024-07-02 08:02 | disposition home or self-care (01) ==
LOC: HO.CHCLDS 08:01
PROVIDERS: Surgery Vascular Surgery; Visit Provider Student in an Organized Health Care Education/Training Program
DX: I71.40 Abdominal aortic aneurysm, without rupture, unspecified (principal); I10 Essential (primary) hypertension
CPT/HCPCS: 36415; 80048; 80061; 80076

== ENCOUNTER 2024-12-24 09:16 | Outpatient (REF) | payer OTHER, SELFPAY ==
[2024-12-24 14:43] LABS: Alanine Aminotransferase 11 U/L (0-31); Albumin Level 4.4 g/dL (3.5-5.0); Alkaline Phosphatase 97 U/L (39-117); Anion Gap 9 (12-20); Aspartate Amino Transferase 24 U/L (5-31); Bilirubin Direct 0.2 mg/dL (0.0-0.5); Bilirubin Total 0.5 mg/dL (0.0-1.0); Blood Urea Nitrogen 20 mg/dL (9-16); Calcium 9.9 mg/dL (8.4-10.2); Carbon Dioxide 27 mmol/L (22-29); Chloride 110 mmol/L (96-108); Cholesterol 247 mg/dL (<200); Estimated Glomerular Filt Rate > 60; Glucose Random 91 mg/dL (60-115); HDL Cholesterol 53 mg/dL (>40); LDL Cholesterol Calculated 170 mg/dL (<100); Potassium 4.2 mmol/L (3.3-5.1); Sodium 142 mmol/L (135-145); Total Protein 8.1 g/dL (6.5-8.0); Triglycerides 124 mg/dL (<150)
== END 2024-12-24 09:17 | disposition home or self-care (01) ==
LOC: HO.CHCLDS 09:16
PROVIDERS: Visit Provider Student in an Organized Health Care Education/Training Program
DX: I10 Essential (primary) hypertension (principal)
CPT/HCPCS: 36415; 80048; 80061; 80076

== ENCOUNTER 2025-03-07 14:27 | Outpatient (REF) | payer OTHER, SELFPAY ==
--- NOTE | ~2025-03-07 | CT_ITS ---
EXAMINATION: CT ANGIOGRAM ABDOMEN AND PELVIS CLINICAL INFORMATION: Abdominal aortic aneurysm post EVAR graft , follow-up COMPARISON: February 20, 2024 TECHNIQUE: Multiple axial images were obtained through the abdomen and pelvis following the administration of 80 mL of Omnipaque 350 intravenous contrast. Images were reviewed on a dedicated 3-D workstation. This CT examination was performed using dose optimization techniques as appropriate, variously including the following: *Automated exposure control *Adjustment of mA and/or kV according to patient size (this includes techniques or standardized protocols for targeted exams where dose is matched to indication/reason for exam; i.e. extremities or head) *Use of iterative reconstruction technique DLP: 333 mGY*cm FINDINGS: VASCULAR: Graft is present in the abdominal aorta. It extends 1.3 cm cephalad to renal artery origins to the origin of SMA. There is distal flow into both renal arteries. Graft extends through the common iliac arteries terminating at the bifurcation. No visible contrast leak is evident. Aneurysmal sac shows continued decrease in diameter measuring 3.2 x 3.4 cm, previously 3.6 x 4.0 cm (AP by transverse). Celiac artery and SMA are patent with flow. MATEUSZ is not clearly identified. Lung bases are clear. Liver and gallbladder are unremarkable. Pancreas is unremarkable. Spleen is not enlarged and homogeneous. The adrenal glands are unremarkable. Kidneys ureter and bladder: 6.6 cm exophytic low attenuating lesion involving the mid right kidney is consistent with benign simple renal cysts, unchanged. A smaller simple renal cyst is present involving the anterior superior pole the left kidney. Ureters are unremarkable. Bladder is unremarkable. GI tract: Descending and sigmoid colonic pseudodiverticula are present without wall thickening or inflammatory changes. The appendix is thin-walled gas-filled. Lymph nodes: No adenopathy. Pelvic viscera: Uterus and ovaries are grossly unremarkable and small consistent with postmenopause. There is no free fluid in the pelvis. Bones: Moderate degenerative disc disease with disc space narrowing and vacuum phenomena is noted at L5-S1. CT/CT angio abdomen pelvis IMPRESSION: Abdominal aortic aneurysm post EVAR graft with continued decrease in aneurysmal sac diameter. Fleischner guidelines were followed. Electronically signed by: Nhan Pierce MD 03/07/2025 05:35 PM EDT
--- OUTSIDE RECORDS SUMMARY | 2025-03-07 14:29 | XMS_ITS | Clinical Summary ---
Author Organization [facility] Address [address] [place] [address] Care Team Providers Care Chemical Applicator Name Role Phone Harpal Keith MD Primary Care Provider [phone] Medical History Medical History Date Comments Essential hypertension DX:Essent ial hypertension Family History Medical History Relation Name Comments Colon cancer Brother Diabetes Father ESRD Father 84 Hypertension Father Diabetes Mother Hypertension Mother Breast cancer Sister Abdominal Aortic Anuerysm (AAA) Neg Hx Relation Name Status Comments Brother Father Mother Alive Sister Social History Tobacco Use Types Packs/Day Years Used Date Smoking Tobacco: Never Smokeless Tobacco: Never Alcohol Use Standard Drinks/Week Comments Not Currently 0 (1 standard drink = 0.6 oz pur e alcohol) Comments Unknown Sex and Gender Information Value Date Recorded Sex Assigned at Not on file Legal Sex Female 4:57 AM EST Gender Identity Not on file Sexual Orientation Not on file Obstetrics History Last Filed Vital Signs Vital Sign Reading Time Taken Comments Blood Pressure 122/78 02/16/2023 1:13 PM EDT Sit ting L Arm Pulse 69 02/16/2023 1:13 PM EDT Temperature - - Respiratory Rate - - Oxygen Saturation - - Inhaled Oxygen Concentration - - Weight 54.4 kg (120 lb) 02/16/2023 1:13 PM EDT Height 152.4 cm (5') 02/16/2023 1:13 PM EDT Body Mass Index 23.44 02/16/2023 1:13 PM EDT Plan of Treatment Health Maintenance Due Date Last Done Comments DTaP,Tdap,and Td Vaccines (1 - Tdap) 1974 Pneumococcal Vaccine: 50+ Years (1 of 1 - PCV) 2005 Zoster Vaccines (1 of 2) 2005 Cholesterol Screening (Lipid Panel) 09/04/2022 Colorectal Cancer Screening: Colonoscopy 09/04/2022 Depression Screening 09/04/2022 Falls Risk Assessment 09/04/2022 Hepatitis C Screening 09/04/2022 Osteoporosis Screening (Bone Density Screening) 09/04/2022 Social Influencers of Health Screening 09/04/2022 Hypertension/CHF/CAD Annual BMP Blood Test 10/31/2023 COVID-19 Vaccine ( season) 2024 Influenza Vaccine (Season Ended) 2025 Breast Cancer Screening 05/15/2026 05/15/20 24, 05/10/2023, 05/05/2022, Additional history exists RSV Immunization Adult Patients (1 - 1-dose 75+ series) 2030 HIB Vaccines Aged Out No longer eligi ble based on patient's age to complete this topic HPV Vaccines Aged Out No longer eligi ble based on patient's age to complete this topic Hepatitis A Vaccines Aged Out No long er eligible based on patient's age to complete this topic Hepatitis B Vaccines Aged Out No long er eligible based on patient's age to complete this topic IPV Vaccines Aged Out No longer eligi ble based on patient's age to complete this topic MMR Vaccines Aged Out No longer eligi ble based on patient's age to complete this topic Meningococcal ACWY Vaccine Aged Out N o longer eligible based on patient's age to complete this topic Meningococcal B Vaccine Aged Out No l onger eligible based on patient's age to complete this topic RSV Immunization Patients Under 20 months Aged Out No longer eligible based on patient's age to complete this topic Varicella Vaccines Aged Out No longer eligible based on patient's age to complete this topic Procedures Procedure Name Priority Date/Time Associated Diagnosis Comments LEIGH SCREENING DIGITAL Routine 05/15/2024 4:37 PM EDT Encounter for screening mammogram for malignant neoplasm of breast from Last 3 Months or Most Recently Relevant to Health Maintenance Results * LEIGH SCREENING DIGITAL (05/15/2024 4:37 PM EDT) Anatomical Region Laterality Modality Mammography 05/15/2024 10:4 2 AM EDT Narrative 05/15/2024 4:37 PM EDT [facility] Diagnostic Imaging Department [address] [place], [place] [id number] Patient: ??MINDY BAL ?/Age/Sex: 1955 - 68 - F Unit#: ??[id number] ? Location/Status: ??SPDIMAM/REG CLI ? Mnemonic/Ordering Site: ??DIGSC/SPMAM Ordering Physician: ??HARPAL KEITH MD [facility] Screening Digital - 05/15/24 - 1111 Report Status:Signed EXAM: [facility] Screening Digital EXAM DATE AND TIME: 05/15/2024 11:11 AM HISTORY: ??Screening. Mother had breast carcinoma at age 79, sister at age 49. COMPARISON: ??05/10/23, 05/05/22, 05/03/21 TECHNIQUE: Bilateral digital breast tomosynthesis was performed in the CC and MLO projections. Computer aided detection with [employer]out 3D 3.1 was employed. TISSUE DENSITY: b. There are scattered areas of fibroglandular density. FINDINGS: No suspicious masses, grouped microcalcifications, or areas of architectural distortion are seen. Skin and vascular calcifications are noted. IMPRESSION: Stable mammographic appearance of the breasts. ??No evidence of malignancy is seen. A negative mammogram in the presence of a clinically suspicious palpable abnormality does not preclude the possibility of malignancy or alter the indications for biopsy. BI-RADS: ??Category 2: Benign RECOMMENDATION(S): 1: Routine screening mammogram BILATERAL in 1 year. Dictating Physician: ??KYMBERLY MOJICA MD Electronically Signed by: ??KYMBERLY MOJICA MD Dic Date/Time: ??05/15/24 1637 Sign date/Time: ??05/15/24 1637 Procedure Note Kymberly Mojica MD - 07/17/2024 [facility] Diagnostic Imaging Department [address] [place] [id number] Patient: MINDY BAL D.O.B./Age/Sex: 1955 - 68 - F Unit#: [id number] Location/Status: [facility] CLI [facility] Ordering Physician: HARPAL KEITH MD [facility] Screening Digital - 05/15/24 - 1111 Report Status:Signed EXAM: [facility] Screening Digital EXAM DATE AND TIME: 05/15/2024 11:11 AM HISTORY: Screening. Mother had breast carcinoma at age 79, sister at age49. COMPARISON: 05/10/23, 05/05/22, 05/03/21 TECHNIQUE: Bilateral digital breast tomosynthesis was performed in the CCand MLO projections. Computer aided detection with FootballScout 3D 3.1was employed. TISSUE DENSITY: b. There are scattered areas of fibroglandular density. FINDINGS: No suspicious masses, grouped microcalcifications, or areas ofarchitectural distortion are seen. Skin and vascular calcifications are noted. IMPRESSION: Stable mammographic appearance of the breasts. No evidence of malignancyis seen. A negative mammogram in the presence of a clinically suspicious palpable abnormality does not preclude the possibility of malignancy or alter the indications for biopsy. BI-RADS: Category 2: Benign RECOMMENDATION(S): 1: Routine screening mammogram BILATERAL in 1 year. Dictating Physician: KYMBERLY MOJICA MD Electronically Signed by: KYMBERLY MOJICA MD Dic Date/Time: 05/15/24 1637 Sign date/Time: 05/15/24 1637 Harpal Keith MD IMG BI PROCEDURES Final Result from Last 3 Months or Most Recently Relevant to Health Maintenance Care Teams Chemical Applicator Relationship Specialty Start Date End Date Harpal Keith MD [address] [place] [id number] PCP - General 07/05/16
[2025-03-07 14:43] LABS: Estimated Glomerular Filt Rate 54
[2025-03-07] MEDS: iohexoL 350 MG/ML 100 ML INFUS..BTL IV (15:43)
== END 2025-03-07 14:28 | disposition home or self-care (01) ==
LOC: HO.CT 14:27
PROVIDERS: PCP Student in an Organized Health Care Education/Training Program; Visit Provider Surgery Vascular Surgery
DX: I71.43 Infrarenal abdominal aortic aneurysm, without rupture (principal)
CPT/HCPCS: 36415; 74174; 82565; Q9967

== ENCOUNTER → 2025-03-07 14:29 | Outpatient (BNV) | payer OTHER, SELFPAY | PROVIDERS: PCP Student in an Organized Health Care Education/Training Program; Visit Provider Radiology Diagnostic Radiology | DX: I71.40 Abdominal aortic aneurysm, without rupture, unspecified (principal) | CPT/HCPCS: 74174 ==

== ENCOUNTER 2025-03-27 09:43 | Outpatient (AMB) | payer OTHER, SELFPAY ==
--- NOTE | 2025-03-27 09:45 | A.OFFVIS_ITS ---
Intake Visit Reasons: 1y follow up s/p CTA Abd/Pelvis 03/07/25 Intake Note: 1 yr follow up CTA Abd/pelvis 03/07/25 for AAA w/ Hx of EVAR March 2023. Pt states no complaints Speech Instructor Required: Yes Speech Instructor Language: Redrawer Services: Speech Instructor Present Speech Instructor Name: Barrie [id number] Information Interpreted: clinical only Accompanied by: Self / Same As Patient Allergies Sulfa (Sulfonamide Antibiotics) Allergy (Severe, Verified 03/27/25 09:50) Rash HPI HPI 1y follow up s/p CTA Abd/Pelvis 03/07/25: Details: The patient is a 69-year-old female presenting with routine surveillance follow- up regarding endovascular aneurysm repair. The procedure was performed on March 13, 2023, using an Endologix AFX2 device. A follow-up CT angiogram was conducted on March 07, 2025, for routine surveillance.. The patient reports mild neuropathy in the right medial thigh since the operation. Other than that appears to be doing fairly well.. Patient for routine CT surveillance follow-up. [facility] Medical History Hypertension Surgical History Hx of colonoscopy Hx of eye surgery Family History Father Diabetes Hypertension Mother No problems noted. Social History Household Members: None Housing: Apartment Are you a primary urgent care nurse practitioner to a significant other at home: No Do you presently have visiting nurse or other home services: No Patient Tobacco Use Status: Never used Tobacco Review of Systems Const All systems reviewed & are unremarkable except as noted in HPI and below Reports no additional complaints ENT Reports Normal hearing present Card Denies chest pain, Denies chest pain at rest, Denies chest pain with activity and Denies pedal edema Resp Denies cough GI Denies abdominal pain Musc Denies abnormal gait, Denies muscle cramps and Denies radiating pain into limb Skin/Breast Denies skin ulcer and Denies wounds Neuro Reports Normal hearing present and Denies abnormal gait Psych Reports no additional complaints Physical Exam Const General: cooperative, healthy appearing and comfortable Orientation/consciousness: oriented to person, oriented to place and oriented to time HEENT Head: Yes normal to inspection Neck Neck: Yes normal visual inspection Carotids: no bruits Chest Chest palpation & inspection: normal inspection of the chest Resp Effort & Inspection: normal respiratory effort and able to speak in complete sentences Auscultation: clear to auscultation bilaterally, no crackles, no rales, no rhonchi and no wheezes Cardio Rate: regular rate Rhythm: regular rhythm Heart sounds: S1 normal heart sound present and S2 normal heart sound present Bruits: no carotid bruits Peripheral pulses: Peripheral pulses 2+ throughout GI Inspection: Yes normal to inspection Skin Wounds: no wounds Hair: normal Neuro General: oriented to person, oriented to place and oriented to time Cranial nerves: Yes CN's II-XII intact bilaterally and Yes Normal hearing pre sent Cognition (Neuro): normal cognition Motor exam (neuro): 5/5 motor strength present throughout Extrem Other: venous exam: No significant superficial varicosities or spider telangiectasias, minimal edema General: No clubbing, No cyanosis and No edema Psych Appearance: grossly normal Mental Status: mental status grossly normal Speech and movement: Normal speech and movement present Results Reviewed Results Reviewed: CT angiogram dated 03/07/2025 demonstrates appropriate positioned aortic e ndograft. Assessment & Plan Assessment & Plan (1) AAA (abdominal aortic aneurysm) without rupture: Comment: 03/13/2023 - endovascular aortic aneurysm repair with Endologix AFX 2 device Code(s): I71.40 - Abdominal aortic aneurysm, without rupture, unspecified Category: Medical Qualifiers: Abdominal aorta location: infrarenal aorta Qualified Code(s): I71.43 - Infrarenal abdominal aortic aneurysm, without rupture Plan: In short patient has stable aortic endograft. We have discussed the pathophysiology of aortic aneurysms and the risk of ruptures. We have discussed rupture risk based on size. In addition we have discussed conservative measures and risk factor modification for prevention of increase in size of the aneurysm. the patient is scheduled for surveillance follow-up in approximately 1 year. Thank you for allowing us to participate in the care of this patient Orders: Orders Blood Urea Nitrogen 1 Year I71.43 - Infrarenal abdominal aortic aneurysm, without rupture Creatinine 1 Year I71.43 - Infrarenal abdominal aortic aneurysm, without rupture CT angio abdomen pelvis 1 Year I71.43 - Infrarenal abdominal aortic aneurysm, without rupture Coding Level of Care Code Est Pt Level 4 (14033) Complex EM visit Add On [id number] Diagnoses Infrarenal abdominal aortic aneurysm (AAA) without rupture I71.43 Abdominal aorta location: infrarenal aorta
--- OUTSIDE RECORDS SUMMARY | 2025-03-27 10:55 | XMS_ITS | Clinical Summary ---
Author Organization [facility] Address [address] [place] [address] Care Team Providers Care Strip Machine Operator Name Role Phone Harpal Keith MD Primary Care Provider [phone] Medical History Medical History Date Comments Essential [...] AM EDT Narrative 05/15/2024 4:37 PM EDT [facility] Diagnostic Imaging Department [address] [place], [place] [phone] Patient: MINDY BAL /Age/Sex: 1955 - 68 - F Unit#: [id number] Location/Status: SPDIMAM/REG CLI Mnemonic/Ordering Site: [facility] Ordering Physician: HARPAL KEITH MD [facility] Screening Digital - 05/15/24 - 1111 Report Status:Signed EXAM: [facility] Screening Digital EXAM DATE AND TIME: 05/15/2024 11:11 AM HISTORY: Screening. Mother had breast carcinoma at age 79, sister at age 49. COMPARISON: 05/10/23, 05/05/22, 05/03/21 TECHNIQUE: Bilateral digital breast tomosynthesis was performed in the CC and MLO projections. Computer aided detection with [employer] 3D 3.1 was employed. TISSUE DENSITY: b. There are scattered areas of fibroglandular density. FINDINGS: No suspicious masses, grouped microcalcifications, or areas of architectural distortion are seen. Skin and vascular calcifications are noted. IMPRESSION: Stable mammographic appearance of the breasts. No evidence of malignancy is seen. A negative mammogram in the presence of a clinically suspicious palpable abnormality does not preclude the possibility of malignancy or alter the indications for biopsy. BI-RADS: Category 2: Benign RECOMMENDATION(S): 1: Routine screening mammogram BILATERAL in 1 year. Dictating Physician: KYMBERLY MOJICA MD Electronically Signed by: KYMBERLY MOJICA MD Dic Date/Time: 05/15/241636 Sign date/Time: 05/15/241636 Procedure Note Kymberly Mojica MD - 07/17/2024 [facility] Diagnostic Imaging Department [address] [place] [id number] Patient: MINDY BALO.B./Age/Sex: 1955 - 68 - F Unit#: [id number] Location/Status: [facility] CLI Mnemonic/Ordering Site: [facility] Ordering Physician: HARPAL KEITH MD [facility] Screening Digital - 05/15/24 - 1111 Report Status:Signed EXAM: [facility] Screening Digital EXAM DATE AND TIME: 05/15/2024 11:11 AM HISTORY: Screening. Mother had breast carcinoma at age 79, sister at age49. COMPARISON: 05/10/23, 05/05/22, 05/03/21 TECHNIQUE: Bilateral digital breast tomosynthesis was performed in the CCand MLO projections. Computer aided detection with [employer] 3D 3.1was employed. TISSUE DENSITY: b. There [...] Recently Relevant to Health Maintenance Care Teams Strip Machine Operator Relationship Specialty Start Date End Date Harpal Keith MD [address] [place] [id number] PCP - General 07/05/16
== END 2025-03-27 10:50 | disposition home or self-care (01) ==
LOC: HO.HVS 09:44
PROVIDERS: PCP Student in an Organized Health Care Education/Training Program; Visit Provider Surgery Vascular Surgery
DX: I71.43 Infrarenal abdominal aortic aneurysm, without rupture (principal)
CPT/HCPCS: 99214; G2211

== ENCOUNTER → 2025-03-27 09:43 | Outpatient (BNVA) | payer OTHER, SELFPAY | PROVIDERS: PCP Student in an Organized Health Care Education/Training Program; Visit Provider Surgery Vascular Surgery | DX: I71.43 Infrarenal abdominal aortic aneurysm, without rupture (principal) | CPT/HCPCS: 99212 ==

== ENCOUNTER 2025-06-23 09:05 | Outpatient (REF) | payer OTHER, SELFPAY ==
--- OUTSIDE RECORDS SUMMARY | 2025-06-18 11:15 | XMS_ITS | Encounter Summary ---
Author Organization [employer] Address [address] [place] [address] Care Team Providers Care Foley Artist Name Role Phone Anjelica Keith MD Primary Care Provider [phone] Encounter Details Date Type Department Care Team ([facility] st Contact Info) Description 06/18/2025 11:15 AM EDT Office Visit [facility] [address] [place], [place] [phone] Anjelica Keith MD [address] [place] [address] Essential hypertension (Primary Dx); Hypercholesterolemia Social History Tobacco Use Types Packs/Day Years Used Date Smoking Tobacco: Never Smokeless Tobacco: Never Alcohol Use Standard Drinks/Week Comments Never 0 (1 standard drink = 0.6 oz pur e alcohol) Depression Answer Date Recorded Patient Health Questionnaire-9 Score 2 06/25/2024 Patient Health Questionnaire-9 Score 2 06/25/2024 Last PHQ-9: Questionnaire Data Not on file 0 06/25/2024 Housing Stability Answer Date Recorded What is your housing situation today? I have odessa marie 06/18/[address] you li ve. Do you have problems with any of the following? None of the above 06/18/2024 Food Insecurity Answer Date Recorded Within the past 12 months, y ou worried that your food would run out before you got money to buy more: Never True 06/18/2024 Within the past 12 months,th e food you bought just didn't last and you didn't have enough money to get more: Never True Transportation Answer Date Recorded In the past 12 months, has l ack of transportation kept you from medical appts, meetings, work or from getting things needed for daily living? No 06/18/2024 Utilities Answer Date Recorded In the past 12 months, has t he electric, gas, oil or water company threatened to shut off services in your home? No 06/18/2024 Depression Answer Date Recorded Patient Health Questionnaire-2 Score 2 06/25/2024 Internet Access Answer Date Recorded Internet Access Q1 Yes 06/18/2024 Internet Access Q2 Not on file 06/18/2024 Comments No Sex and Gender Information Value Date Recorded Sex Assigned at Female 08/01/2022 10:29 AM EDT Legal Sex Female 10:29 AM EDT Gender Identity Female 08/01/2022 10:29 AM EDT Sexual Orientation Straight 08/01/2022 10 :29 AM EDT documented as of this encounter Last Filed Vital Signs Vital Sign Reading Time Taken Comments Blood Pressure 138/82 06/18/2025 10:51 AM EDT Pulse 68 06/18/2025 10:51 AM EDT Temperature 36.6 C (97.8 F) 06/18/2025 10:51 AM EDT Respiratory Rate 16 06/18/2025 10:51 AM EDT Oxygen Saturation - - Inhaled Oxygen Concentration - - Weight 55.3 kg (122 lb) 06/18/2025 10:51 AM EDT Height 149.9 cm (4' 11 ) 06/18/2025 10:51 AM EDT Body Mass Index 24.64 06/18/2025 10:51 AM EDT documented in this encounter Progress Notes * Sarah Suarez MA - 06/18/2025 11:15 AM EDT * Anjelica Keith MD - 06/18/2025 11:15 AM EDT Subjective Patient ID: Mindy Blanchard is a 69 y.o. female who presents for No chief complaint on file.. Hypertension This is a chronic problem. The problem is unchanged. The problem is controlled. Pertinent negativesinclude no chest pain, headaches, neck pain, palpitations or shortness of breath. Review of Systems Constitutional: Negative. Respiratory: Negative. Negative for shortness of breath. Cardiovascular: Negative for chest pain and palpitations. Gastrointestinal: Negative. Genitourinary: Negative. Musculoskeletal: Negative for neck pain. Neurological: Negative for headaches. Objective Physical Exam Constitutional: Appearance: Normal appearance. Cardiovascular: Rate and Rhythm: Normal rate and regular rhythm. Pulses: Normal pulses. Heart sounds: Normal heart sounds. Pulmonary: Effort: Pulmonary effort is normal. Abdominal: General: Abdomen is flat. Neurological: Mental Status: She is alert. Assessment/Plan Diagnoses and all orders for this visit: Essential hypertension Comments: Stable No changed in meds Maintain a low-sodium diet (less than 2 grams per day). Maintain a regular cardiovascular exercise program. Advised to maintain a low-fat, low-cholesterol diet. Counseled regarding importance of weight loss. Counseled re: potential co-morbidities including cardiovascular disease. Orders: - Basic Metabolic Panel; Future - Lipid Panel, Standard; Future - Hepatic Function Panel; Future Hypercholesterolemia Comments: Cont Statin Labs ordered Advised to maintain a low-fat, low-cholesterol diet. Orders: - Basic Metabolic Panel; Future - Lipid Panel, Standard; Future - Hepatic Function Panel; Future Other orders - metoprolol tartrate (Lopressor) 50 MG tablet; TAKE 1 TABLET BY MOUTH EVERY DAY WITH MEALS - rosuvastatin (Crestor) 10 MG tablet; Take 1 tablet (10 mg) by mouth Once per day. - aspirin (Aspirin Low Dose) 81 MG EC tablet; Take 1 tablet (81 mg) by mouth Once per day. - amLODIPine (Norvasc) 10 MG tablet; TAKE 1 TABLET BY MOUTH EVERY DAY documented in this encounter Plan of Treatment Scheduled Orders Name Type Priority Associated Diagnoses Orde r Schedule Basic Metabolic Panel Lab Routine Essential hypertension Hypercholesterolemia Expected: 06/18/2025 (Approximate), Expires: 06/18/2026 Lipid Panel, Standard Lab Routine Essential hypertension Hypercholesterolemia Expected: 06/18/2025 (Approximate), Expires: 06/18/2026 Hepatic Function Panel Lab Routine Essential hypertension Hypercholesterolemia Expected: 06/18/2025 (Approximate), Expires: 06/18/2026 documented as of this encounter Visit Diagnoses Diagnosis Essential hypertension- Primary Unspecified essential hypertension Hypercholesterolemia Pure hypercholesterolemia documented in this encounter Additional Health Concerns Assessment Noted Time PHQ-9 Depression Total Score: 2 09/24/20 24 10:54 AM EDT documented as of this encounter Care Teams Foley Artist Relationship Specialty Start Date End Date Anjelica Keith MD [address] [place] [id number] PCP - General Family Medicine 01/19/16 documented as of this encounter
--- OUTSIDE RECORDS SUMMARY | 2025-06-23 10:40 | XMS_ITS | Clinical Summary ---
Author Organization [facility] Address [address] [place] [address] Phone Care Team Providers Care Press Operator Name Role Phone Anjelica Keith MD Primary Care Provider [phone] Encounters Date Type Department Care Team Description 05/21/2025 10:49 AM EDT - 05/21/2025 11:59 PM EDT Hospital [facility] [address] [address] Encounter for screening mammogram for breast cancer Discharge Disposition: Home or Self Care from Last 3 Months Medical History Medical History Date Comments Essential hypertension DX:Essent ial hypertension Family History Medical History Relation Name Comments Colon cancer Brother Diabetes Father ESRD Father 84 Hypertension Father Breast cancer Father's Sister Breast cancer Mother Diabetes Mother Hypertension Mother Breast cancer Sister Abdominal Aortic Anuerysm (AAA) Neg Hx Relation Name Status Comments Brother Father Father's Sister Alive Mother Alive Sister Social History Tobacco Use Types Packs/Day Years Used Date Smoking Tobacco: Never Smokeless Tobacco: Never Alcohol Use Standard Drinks/Week Comments Not Currently 0 (1 standard drink = 0.6 oz pur e alcohol) Comments No Sex and Gender Information Value Date Recorded Sex Assigned at Not on file Legal Sex Female 4:57 AM EST Gender Identity Not on file Sexual Orientation Not on file Obstetrics History Para Term AB IAB SAB Ectopic Multiple Livin g Live Births 3 Last Filed Vital Signs Vital Sign Reading Time Taken Comments Blood Pressure 122/78 02/16/2023 1:13 PM EDT Sit ting L Arm Pulse 69 02/16/2023 1:13 PM EDT Temperature - - Respiratory Rate - - Oxygen Saturation - - Inhaled Oxygen Concentration - - Weight 55.8 kg (123 lb) 05/21/2025 10:57 AM EDT Height 152.4 cm (5') 05/21/2025 10:57 AM EDT Body Mass Index 24.02 05/21/2025 10:57 AM EDT Plan of Treatment Health Maintenance Due Date Last Done Comments Zoster Vaccines (3 of 3) 05/22/2019 03/27/2019, 09/01 Falls Risk Assessment 09/04/2022 Hepatitis C Screening 09/04/2022 Osteoporosis Screening (Bone Density Screening) 09/04/2022 Social Influencers of Health Screening 09/04/2022 Pneumococcal Vaccine: 50+ Years (2 of 2 - PCV) 10/25/2023 10/25/2022 Hypertension/CHF/CAD Annual BMP Blood Test 10/31/2023 Depression Screening 10/02/2024 COVID-19 Vaccine (4 - season) 2025 08/23/2021, 01/12/2021, 12/15/2020 Influenza Vaccine (#1) 2025 , 07/13/2023, 08/06/2022, Additional history exists DTaP,Tdap,and Td Vaccines (2 - Td or Tdap) 07/25/2026 07/25/2016 Breast Cancer Screening 05/21/2027 05/21/20, 05/15/2024, 05/10/2023, Additional history exists Colorectal Cancer Screening: FIT-DNA (Cologuard) 12/31/2027 12/30/2024 Cholesterol Screening (Lipid Panel) 12/24/2029 12/24/2024 RSV Immunization Adult Patients (1 - 1-dose [...] Procedure Name Priority Date/Time Associated Diagnosis Comments MG MAMMO DIGITAL SCREENING W AB BILAT Routine 05/21/2025 11:05 AM EDT Encounter for screening mammogram for breast cancer from Last 3 Months Results * MG Mammo Digital Screening w Ab bilat (05/21/2025 11:05 AM EDT) Anatomical Region Laterality Modality Breast Bilateral Mammography 05/21/2025 11:5 6 AM EDT Impressions 05/21/2025 12:01 PM EDT No mammographic evidence of malignancy. No suspicious interval change. The estimated lifetime risk of developing breast cancer is likely greater than 20%. Consider supplementary high risk screening MRI if the estimated lifetime risk of developing breast cancer is greater than 20%. ASSESSMENT: BI-RADS 1: NEGATIVE RECOMMENDATION(S): 1: Routine screening mammogram BILATERAL in 1 year. Recommend formal risk assessment and consider supplementary high risk screening. [facility]amm[facility] location[facility] [address], [address] -------- FINAL REPORT -------- Dictated By: Ben Langley Dictated Date: 05/21/2025 11:56 ET Assigned Physician: Ben Langley Reviewed and Electronically Signed By: Ben Langley Signed Date: 05/21/2025 12:01 ET Workstation ID: [id number] Transcribed By: Self Edit Transcribed Date: 05/21/2025 11:56 ET Narrative 05/21/2025 12:01 PM EDT EXAM: SCREENING MAMMOGRAPHY, BILATERAL HISTORY: SCREENING. Family history of breast cancer; mother diagnosed age 79, sister diagnosed age 49, paternal aunt COMPARISON: 05/15/24, 05/10/23, 05/05/22, 05/03/21 TECHNIQUE: Synthesized CC and MLO projections of each breast. Tomosynthesis of each breast in the CC and MLO projections. ADDITIONAL IMAGING: None Computer-aided detection was employed with the [employer] 3-D. TISSUE DENSITY: There are scattered areas of fibroglandular density. (BI-RADS category B) FINDINGS: RIGHT BREAST: No suspicious mass. No suspicious calcification. No distortion. No additional suspicious right breast findings LEFT BREAST: No suspicious mass. No suspicious calcification. No distortion. No additional suspicious left breast findings Procedure Note Ben Langley MD - 05/21/2025 EXAM: SCREENING MAMMOGRAPHY, BILATERAL HISTORY: SCREENING. Family history of breast cancer; mother diagnosedage 79, sister diagnosed age 49, paternal aunt COMPARISON: 05/15/24, 05/10/23, 05/05/22, 05/03/21 TECHNIQUE: Synthesized CC and MLO projections of each breast.Tomosynthesis of each breast in the CC and MLO projections. ADDITIONAL IMAGING: None Computer-aided detection was employed with the [employer] AI 3-D. TISSUE DENSITY: There are scattered areas of fibroglandular density.(BI-RADS category B) FINDINGS: RIGHT BREAST: No suspicious mass. No suspicious calcification. No distortion. Noadditional suspicious right breast findings LEFT BREAST: No suspicious mass. No suspicious calcification. No distortion. Noadditional suspicious left breast findings IMPRESSION: No mammographic evidence of malignancy. No suspicious interval change. The estimated lifetime risk of developing breast cancer is likely greaterthan 20%. Consider supplementary high risk screening MRI if the estimated lifetimerisk of developing breast cancer is greater than 20%. ASSESSMENT: BI-RADS 1: NEGATIVE RECOMMENDATION(S): 1: Routine screening mammogram BILATERAL in 1 year. Recommend formal risk assessment and consider supplementary high riskscreening. [facility]amm[facility] location[facility] at [address], [address] -------- FINAL REPORT -------- Dictated By: Ben Langley Dictated Date: 05/21/2025 11:56 ET Assigned Physician: Ben Langley Reviewed and Electronically Signed By: Ben Langley Signed Date: 05/21/2025 12:01 ET Workstation ID: [id number] Transcribed By: Self Edit Transcribed Date: 05/21/2025 11:56 ET us Self Referral [facility] IMG BI PROCEDURES Final Resul t from Last 3 Months Insurance [facility] MEDICAID Care Teams Press Operator Relationship Specialty Start Date End Date Anjelica Keith MD [address] [place] [address] PCP - General 07/05/16
--- OUTSIDE RECORDS SUMMARY | 2025-06-23 10:40 | XMS_ITS | Encounter Summary ---
Author Organization [employer] Address [address] [place] [address] Care Team Providers Care Guyline Operator Name Role Phone Anjelica Keith MD Primary Care Provider [phone] Reason for Visit * Reason Onset Date Comments Letter 02/03/2025 Encounter Details Date Type Department Care Team ([facility] st Contact Info) Description 02/03/2025 Telephone [facility] [address] [place] [address] Anjelica Keith MD [address] [place] [address] Letter Social History Tobacco Use Types Packs/Day Years [...] AM EDT documented as of this encounter Miscellaneous Notes * Telephone Encounter - Ace Jacques - 02/03/2025 11:06 AM EDT TC from pt reports [id number] - [place], [place] - [address] [facility] [address] [facility] [address] [facility] [address] Is requesting a letter to authorize med delivery service documented in this encounter Plan of Treatment Not on file documented as of this encounter Visit Diagnoses Not on filedocumented in this encounter Additional Health Concerns Assessment Noted Time PHQ-9 Depression Total Score: 2 06/25/20 24 10:54 AM EDT documented as of this encounter Care Teams Guyline Operator Relationship Specialty Start Date End Date Anjelica Keith MD [address] [place] [id number] PCP - General Family Medicine 01/19/16 documented as of this encounter
--- OUTSIDE RECORDS SUMMARY | 2025-06-23 10:40 | XMS_ITS | Encounter Summary ---
Author Organization [employer] Address [address] [place] [address] Care Team Providers Care Motel Food Service Supervisor Name Role Phone Anjelica Keith MD Primary Care Provider [phone] Encounter Details Date Type Department Care Team ([facility] st Contact Info) Description 12/23/2024 Telephone [facility] MED[facility] [address] [place] [address] Anjelica Keith MD [address] [place], [place] [phone] Social History Tobacco Use Types Packs/Day Years [...] your housing situation today? I have odessa cynthia 06/18/[address] you li [...] encounter Miscellaneous Notes * Telephone Encounter - Aniyah Loza - 12/23/2024 3:17 PM EDT Tc from pt requesting a callback, pt contact health insurance as pt will like medication to be delivered to home. Pt was told from health plan needs to reach out to provider so he can authorized medication to be delivered to home. She states need clarification on med. documented in this encounter Plan of Treatment Not on file documented as of this encounter Visit Diagnoses Not on filedocumented in this encounter Additional Health Concerns Assessment Noted Time PHQ-9 Depression Total Score: 2 06/25/20 10:54 AM EDT documented as of this encounter Care Teams Motel Food Service Supervisor Relationship Specialty Start Date End Date Anjelica Keith MD [address] [place] [address] PCP - General Family Medicine 01/19/16 documented as of this encounter
--- OUTSIDE RECORDS SUMMARY | 2025-06-23 10:40 | XMS_ITS | Encounter Summary ---
Author Organization [employer] Address [address] [facility] [address] [place] [address] Care Team Providers Care Horticultural Services Supervisor Name Role Phone Anjelica Keith MD Primary Care Provider [phone] Encounter Details Date Type Department Care Team ([facility] Contact Info) Description 03/13/2025 Orders Only [facility] [address] [place], [place] [phone] Provider, MD Shwetha Social History Tobacco Use Types Packs/Day Years [...] is your housing situation today? I have odessasophia marie 06/18/[address] you [...] AM EDT documented as of this encounter Plan of Treatment Not on file documented as of this encounter Procedures Procedure Name Priority Date/Time Associated Diagnosis Comments HM COLONOSCOPY Routine 03/13/2025 3:30 PM EDT documented in this encounter Results * Hm Colonoscopy (03/13/2025 3:30 PM EDT) Historical Provider HEALTH MAINTENANCE Final Result documented in this encounter Visit Diagnoses Not on filedocumented in this encounter Additional Health Concerns Assessment Noted Time PHQ-9 Depression Total Score: 2 06/25/20 24 10:54 AM EDT documented as of this encounter Care Teams Horticultural Services Supervisor Relationship Specialty Start Date End Date Anjelica Keith MD [address] [place] [address] PCP - General Family Medicine 01/19/16 documented as of this encounter
--- OUTSIDE RECORDS SUMMARY | 2025-06-23 10:40 | XMS_ITS | Encounter Summary ---
Author Organization [employer] Address [address] [place] [address] Care Team Providers Care Power Originator Name Role Phone Anjelica Keith MD Primary Care Provider [phone] Encounter Details Date Type Department Care Team ([facility] st Contact Info) Description 11/17/2023 Telephone [facility] [address] [place], [place] [phone] Anjelica Keith MD [address] [place], [place] [phone] Social History Tobacco Use Types Packs/Day Years Used Date Smoking Tobacco: Never Smokeless Tobacco: Never Alcohol Use Standard Drinks/Week Comments Never 0 (1 standard drink = 0.6 oz pur e alcohol) Depression Answer Date Recorded Patient Health Questionnaire-9 Score 2 10/25/2022 Housing Stability Answer Date Recorded What is your housing situation today? I have odessa marie 07/31/[address] you li ve. Do you have problems with any of the following? None of the above 07/31/2023 Food Insecurity Answer Date Recorded Within the past 12 months, y ou worried that your food would run out before you got money to buy more: Never True 07/31/2023 Within the past 12 months,th e food you bought just didn't last and you didn't have enough money to get more: Never True Transportation Answer Date Recorded In the past 12 months, has l ack of transportation kept you from medical appts, meetings, work or from getting things needed for daily living? No 07/31/2023 Utilities Answer Date Recorded In the past 12 months, has t he electric, gas, oil or water company threatened to shut off services in your home? No 07/31/2023 Depression Answer Date Recorded Patient Health Questionnaire-2 Score 2 10/25/2022 Comments Unknown Sex and Gender Information Value Date Recorded Sex Assigned at Female 08/01/2022 10:29 AM EDT Legal Sex Female 10:29 AM EDT Gender Identity Female 08/01/2022 10:29 AM EDT Sexual Orientation Straight 08/01/2022 10 :29 AM EDT documented as of this encounter Miscellaneous Notes * Telephone Encounter - Alix Olivas RN - 11/17/2023 2:31 PM EST Med list faxed to pharmacy as requested. Confirmation received. * Telephone Encounter - Shannan Blanchard - 11/17/2023 11:24 AM EST Tc from states pharmacy is requesting medication list due to pt wanting to start booster packs. documented in this encounter Plan of Treatment Not on file documented as of this encounter Visit Diagnoses Not on filedocumented in this encounter Additional Health Concerns Assessment Noted Time PHQ-9 Depression Total Score: 2 10/25/19 23 11:03 AM EST documented as of this encounter Care Teams Power Originator Relationship Specialty Start Date End Date Anjelica Keith MD [address] [place] [id number] PCP - General Family Medicine 01/19/16 documented as of this encounter
--- OUTSIDE RECORDS SUMMARY | 2025-06-23 10:40 | XMS_ITS | Clinical Summary ---
Author Organization [employer] Address [address] [place] [address] 7[address] [place] [address] Care Team Providers Care Court Operations Clerk Name Role Phone Anjelica Keith MD Primary Care Provider [phone] Allergies Active Allergy Reactions Criticality Noted Date Comments Sulfa Antibiotics Rash High 12/08/2017 Trimethoprim 12/08/2017 Medications Multiple Vitamin (Multivitamin) tablet Take 1 tablet by mouth Once per day. 90 tablet 1 5 Active metoprolol tartrate (Lopressor) 50 MG tablet TAKE 1 TABLET BY MOUTH EVERY DAY WITH MEALS 90 tablet 5 Active rosuvastatin (Crestor) 10 MG tablet Take 1 tablet (10 mg) by mouth Once per day. 30 tablet 5 026 Active aspirin (Aspirin Low Dose) 81 MG EC tablet Take 1 tablet (81 mg) by mouth Once per day. 90 tablet 1 5 Active amLODIPine (Norvasc) 10 MG tablet TAKE 1 TABLET BY MOUTH EVERY DAY 90 tablet 3 5 Active metoprolol tartrate (Lopressor) 50 MG tablet TAKE 1 TABLET BY MOUTH EVERY DAY WITH MEALS 90 tablet 5 025 Discontinued(Re order (will not trigger notification to Pharmacy)) aspirin (Aspirin Low Dose) 81 MG EC tablet Take 1 tablet (81 mg) by mouth Once per day. 90 tablet 1 5 025 Discontinued(Re order (will not trigger notification to Pharmacy)) rosuvastatin (Crestor) 10 MG tablet Take 1 tablet (10 mg) by mouth Once per day. 30 tablet 11 5 025 Discontinued(Re order (will not trigger notification to Pharmacy)) amLODIPine (Norvasc) 10 MG tablet TAKE 1 TABLET BY MOUTH EVERY DAY 90 tablet 5 025 Discontinued(Re order (will not trigger notification to Pharmacy)) Multiple Vitamin (Multivitamin) tablet TAKE 1 TABLET BY MOUTH DAILY 90 tablet 1 5 025 Discontinued(Re order (will not trigger notification to Pharmacy)) amLODIPine (Norvasc) 10 MG tablet TAKE 1 TABLET BY MOUTH EVERY DAY 90 tablet 5 025 Discontinued(Re order (will not trigger notification to Pharmacy)) Active Problems Problem Noted Date Diagnosed Date Essential hypertension 01/19/2016 Gastroesophageal reflux disease without esophagi tis 01/19/2016 Hypercholesterolemia 01/19/2016 Encounters Date Type Department Care Team Description 06/19/2025 Orders Only [facility] [address] [place] [address] Shwetha Euceda MD 06/18/2025 11:15 AM EDT Office Visit [facility] [address] [place] [address] Anjelica Keith MD Essential hypertension (Primary Dx); Hypercholesterolemia 06/18/2025 Travel 06/17/2025 Telephone [facility] [address] [place] [address] Anjelica Keith MD chart Prep 06/11/2025 Refill [facility] [address] [place] [address] Anjelica Keith MD 06/04/2025 Refill [facility] [address] [place] [address] Anjelica Keith MD 05/23/2025 Refill [facility] [address] [place] [address] Anjelica Keith MD 05/22/2025 Orders Only [facility] [address] [place] [address] Shwetha Euceda MD 05/19/2025 Refill [facility] [address] [place] [address] Anjelica Keith MD from Last 3 Months Immunizations Immunization Administration Dates Next Due Influenza High-dose Quadriva lent Preservative Free 07/13/2023,08/06/2022,07/07/2021 Influenza injectable quadriv alent IIV4 with preservative 08/31/2019,09/18/2018,06/28/2017,07/25 Influenza injectable quadriv alent preservative free 07/02/2020 Influenza, High Dose Seasona l, Preservative Free 06/25/2024 Pneumococcal Polysaccharide PPSV23 10/25/2022 Tdap 07/25/2016 Zoster, Recombinant 03/27/2019 Zoster, live 09/18/2018 Social History Tobacco Use Types Packs/Day Years Used Date Smoking Tobacco: Never Smokeless Tobacco: Never Tobacco Cessation:Counseling Given: Not Answered Alcohol Use Standard Drinks/Week Comments Never 0 [...] Orientation Straight 08/01/2022 10 :29 AM EDT Last Filed Vital Signs Vital Sign Reading Time Taken Comments Blood Pressure 138/82 06/18/2025 10:51 AM EDT Pulse 68 06/18/2025 10:51 AM EDT Temperature 36.6 C (97.8 F) 06/18/2025 10:51 AM EDT Respiratory Rate 16 06/18/2025 10:51 AM EDT Oxygen Saturation 99% 07/13/2023 10:42 AM EDT Inhaled Oxygen Concentration - - Weight 55.3 kg (122 lb) 06/18/2025 10:51 AM EDT Height 149.9 cm (4' 11 ) 06/18/2025 10:51 AM EDT Body Mass Index 24.64 06/18/2025 10:51 AM EDT Plan of Treatment Health Maintenance Due Date Last Done Comments CT Colonography 1955 FIT 1955 Sigmoidoscopy 1955 Alcohol/Substance Use Screening 1967 Hepatitis C Screening 1973 Zoster Vaccines (3 of 3) 05/22/2019 03/27/2019, 09/01 Pneumococcal Vaccine: 50+ Years (2 of 2 - PCV) 10/25/2023 10/25/2022 COVID-19 Vaccine (4 - season) 2025 08/23/2021, 01/12/2021, 12/15/2020 Influenza Vaccine (#1) 2025 , 07/13/2023, 08/06/2022, Additional history exists SDOH Screening 06/18/2025 06/18/2024 Depression Screening 06/25/2025 06/25/2024, 06/25/20 Tobacco Screening 12/18/2025 12/18/2024 FOBT 12/30/2025 12/30/2024 Mammogram 05/21/2026 05/21/2025, 08, 05/21/2025 DTaP/Tdap/Td Vaccines (2 - Td or Tdap) 07/25/2026 07/25/2016 FIT DNA/Cologuard 12/31/2027 12/30/2024 Lipid Panel 12/24/2029 12/24/2024, 10/0 10/2023, 06/20/2023, Additional history exists RSV Patients and Patients Aged 60 years or older (1 - 1-dose 75+ series) 2030 Colonoscopy 03/13/2035 03/13/2025, 08/31/2018 Colorectal Cancer Screening 03/13/2035 HIB Vaccines Aged Out No longer eligi [...] patient's age to complete this topic Meningococcal Vaccine Aged Out No cale qiana eligible based on patient's age to complete this topic RSV under 20 months Aged Out No longe r eligible based on patient's age to complete this topic Rotavirus Vaccines Aged Out No longer eligible based on patient's age to complete this topic Procedures Procedure Name Priority Date/Time Associated Diagnosis Comments MAMMOGRAPHY Routine 05/21/2025 3:46 PM EDT HM COLONOSCOPY Routine 03/13/2025 3:30 PM EDT LAB COLOGUARD COLON CANCER SCREEN Routine 12/30/2024 1:10 PM EDT Screening for colon cancer LIPID PANEL, STANDARD Routine 12/24/2024 9:17 AM EDT Essential hypertension from Last 3 Months or Most Recently Relevant to Health Maintenance Results * Mammography (05/21/2025 3:46 PM EDT) Anatomical Region Laterality Modality Other us Historical Provider HEALTH MAINTENANCE Final Result * Colonoscopy (03/13/2025 3:30 PM EDT) us Historical Provider HEALTH MAINTENANCE Final Result * (ABNORMAL) Cologuard?? colon cancer screening (12/30/2024 1:10 PM EDT) Cologuard Result Positive( A) Negative 01/06/2025 1:00 PM EDT [facility] (CLIA #:[id number]) Comment: POSITIVE TEST RESULT. A positive Cologuard result should be followed with a colonoscopy or visual examination of the colon. The normal value (reference range) for this assay is negative. TEST DESCRIPTION: Composite algorithmic analysis of stool DNA-biomarkers with hemoglobin immunoassay. Quantitative values of individual biomarkers are not reportable and are not associated with individual biomarker result reference ranges. Cologuard is intended for colorectal cancer screening of adults of either sex, 45 years or older, who are at average-risk for colorectal cancer (CRC). Cologuard has been approved for use by the U.S. FDA. The performance of Cologuard was established in a cross sectional study of average-risk adults aged 50-84. Cologuard performance in patients ages 45 to 49 years was estimated by sub-group analysis of near-age groups. Colonoscopies performed for a positive result may find as the most clinically significant lesion: colorectal cancer [4.0%], advanced adenoma (including sessile serrated polyps greater than or equal to 1cm diameter) [20%] or non- advanced adenoma [31%]; or no colorectal neoplasia [45%]. These estimates are derived from a prospective cross-sectional screening study of 10,000 individuals at average risk for colorectal cancer who were screened with both Cologuard and colonoscopy. (Khloe Mena al, N Engl J Med 2014;370(14):7197-7871.) Cologuard may produce a false negative or false positive result (no colorectal cancer or precancerous polyp present at colonoscopy follow up). A negative Cologuard test result does not guarantee the absence of CRC or advanced adenoma (pre-cancer). The current Cologuard screening interval is every 3 years. ([place] [employer] and U.S. Multi-Society Task Force). Cologuard performance data in a 10,000 patient pivotal study using colonoscopy as the reference method can be accessed at the following location: www.exactlabs.com/results. Additional description of the Cologuard test process, warnings and precautions can be found at www.cologuard.com. Stool specimen (specimen) 12/30/2024 1:10 PM EDT 12/31/2024 10:35 AM EDT Anjelica Keith MD LAB MOLECULAR DIAGNOSTICS ORDERA BLES Final Result [facility] (CLIA #:[id number]) [address] [place] [address], * (ABNORMAL) Lipid Panel, Standard (12/24/2024 9:17 AM EDT) Triglycerides 124 <150 mg/dL [facility] Comment:Desirable Triglyceri de: less than 150 mg/dLBorderline High Triglyceride 150-199 mg/dLHigh Triglyceride: 200-499 mg/dLVery High Triglyceride: greater than or equal to 5OO mg/dL Cholesterol 247(H) <200 mg/dL [facility] Comment:Desirable Cholestero l: less than 200 mg/dLBorderline High Cholesterol: 200-239 mg/dLHigh Cholesterol: greater than 239 mg/dL LDL Cholesterol Calculated 170(H) <100 mg/dL [facility] Comment:Desirable LDL: less than 100 mg/dLNear Optimal/Above Optimal LDL: 110- 129 mg/dLBorderline High LDL: 130-159 mg/dLHigh LDL: 160-189 mg/dLVery High LDL: greater than or equal to 190 mg/dL HDL Cholesterol 53 >40 mg/dL [facility] Comment:Desirable HDL: great er than 40 mg/dL Note: This HDL assay may give artificially low results in patients with liver disease. Blood Venous blood specimen / Unknown 12/24/2024 9:17 AM EDT 12/24/2024 2:14 PM EDT Anjelica Keith MD LAB BLOOD ORDERABLES Final Resul t [facility] [address] [place] [phone] from Last 3 Months or Most Recently Relevant to Health Maintenance Insurance [employer]ST[employer] [id number] Operations Clerk Relationship Specialty Start Date End Date Anjelica Keith MD [address] [place] [id number] PCP - General Family Medicine 01/19/16
--- OUTSIDE RECORDS SUMMARY | 2025-06-23 10:40 | XMS_ITS | Encounter Summary ---
Author Organization [employer] Address [address] [place] [address] Care Team Providers Care Car Salter Name Role Phone Anjelica Keith MD Primary Care Provider [phone] Reason for Visit * Reason Onset Date Comments Returning Call 06/18/2024 Encounter Details Date Type Department Care Team ([facility] st Contact Info) Description 06/18/2024 Telephone [facility] [address] [place] [address] Anjelica Keith MD [address] [place] [address] Returning Call Social History Tobacco Use Types Packs/Day Years [...] Recorded Patient Health Questionnaire-2 Score 2 10/25/2022 Internet Access Answer Date Recorded Internet Access Q1 Yes 06/18/2024 Internet Access Q2 Not on file 06/18/2024 Comments Unknown Sex and Gender Information Value Date Recorded Sex Assigned at Female 08/01/2022 10:29 AM EDT Legal Sex Female 10:29 AM EDT Gender Identity Female 08/01/2022 10:29 AM EDT Sexual Orientation Straight 08/01/2022 10 :29 AM EDT documented as of this encounter Miscellaneous Notes * Telephone Encounter - Db Bal - 06/18/2024 10:59 AM EDT Tc from pt returning call regarding message below. ELISE Leon placed successful outbound call to patient for pre-visit planning. Patient name and weren't confirmed. documented in this encounter Plan of Treatment Not on file documented as of this encounter Visit Diagnoses Not on filedocumented in this encounter Additional Health Concerns Assessment Noted Time PHQ-9 Depression Total Score: 2 10/25/19 23 11:03 AM EST documented as of this encounter Care Teams Car Salter Relationship Specialty Start Date End Date Anjelica Keith MD [address] [place] [address] PCP - General Family Medicine 01/19/16 documented as of this encounter
--- OUTSIDE RECORDS SUMMARY | 2025-06-23 10:40 | XMS_ITS | Encounter Summary ---
Author Organization [employer] Address [address] [address] [place] [address] Care Team Providers Care Bank Reconciliator Name Role Phone Anjelica Keith MD Primary Care Provider [phone] Encounter Details Date Type Department Care Team (Latest Contact Info) Description 06/18/2025 Travel Social History Tobacco Use Types Packs/Day Years [...] documented as of this encounter Care Teams Bank Reconciliator Relationship Specialty Start Date End Date Anjelica Keith MD [address] [place] [address] PCP - General Family Medicine 01/19/16 documented as of this encounter
--- OUTSIDE RECORDS SUMMARY | 2025-06-23 10:40 | XMS_ITS | Encounter Summary ---
Author Organization [employer] Address [address] [facility] [address] [place] [address] Care Team Providers Care Whistle Punk Name Role Phone Anjelica Keith MD Primary Care Provider [phone] Encounter Details Date Type Department Care Team ([facility] Contact Info) Description 06/19/2025 Orders Only [facility] [address] [place], [place] [id number] Provider, MD Shwetha Social History Tobacco Use [...] Procedure Name Priority Date/Time Associated Diagnosis Comments SURGICAL PATHOLOGY Routine 03/13/2025 1:26 PM EDT documented in this encounter Results * Surgical Pathology (03/13/2025 1:26 PM EDT) Historical Provider LAB PATHOLOGY ORDERABLES Final Result documented in this encounter Visit Diagnoses Not on filedocumented in this encounter Additional Health Concerns Assessment Noted Time PHQ-9 Depression Total Score: 2 06/25/20 24 10:54 AM EDT documented as of this encounter Care Teams Whistle Punk Relationship Specialty Start Date End Date Anjelica Keith MD [address] [place] [id number] PCP - General Family Medicine 01/19/16 documented as of this encounter
--- OUTSIDE RECORDS SUMMARY | 2025-06-23 10:40 | XMS_ITS | Encounter Summary ---
Author Organization [employer] Address [address] [facility] [address] [place] [address] Care Team Providers Care Machine Shop Helper Name Role Phone Anjelica Keith MD Primary Care Provider [phone] Reason for Visit * Reason Comments Med Refill Encounter Details Date Type Department Care Team ([facility] st Contact Info) Description 05/19/2025 Refill [facility] [address] [place] [address] Anjelica Keith MD [address] [place] [address] Social History Tobacco Use Types Packs/Day Years [...] documented as of this encounter Care Teams Machine Shop Helper Relationship Specialty Start Date End Date Anjelica Keith MD [address] [place] [phone] PCP - General Family Medicine 01/19/16 documented as of this encounter
--- OUTSIDE RECORDS SUMMARY | 2025-06-23 10:40 | XMS_ITS | Encounter Summary ---
Author Organization [employer] Address [address] [facility] 7t [place] [address] Care Team Providers Care Coal Getter Name Role Phone Anjelica Keith MD Primary Care Provider [phone] Encounter Details Date Type Department Care Team ([facility] Contact Info) Description 05/22/2025 Orders Only [facility] [address] [place], [place] [phone] Provider, MD Shwetha Social History Tobacco Use [...] Name Priority Date/Time Associated Diagnosis Comments HM MAMMOGRAPHY Routine 05/21/2025 3:46 PM EDT documented in this encounter Results * Hm Mammography (05/21/2025 3:46 PM EDT) Anatomical Region Laterality Modality Other Historical Provider HEALTH MAINTENANCE Final Result documented in this encounter Visit Diagnoses Not on filedocumented in this encounter Additional Health Concerns Assessment Noted Time PHQ-9 Depression Total Score: 2 06/25/20 24 10:54 AM EDT documented as of this encounter Care Teams Coal Getter Relationship Specialty Start Date End Date Anjelica Keith MD [address] [place] [id number] PCP - General Family Medicine 01/19/16 documented as of this encounter
--- OUTSIDE RECORDS SUMMARY | 2025-06-23 10:40 | XMS_ITS | Encounter Summary ---
Author Organization [employer] Address [address] [facility] [address] [facility] [address] [place] [address] Care Team Providers Care Health And Wellness Coach Name Role Phone Anjelica Keith MD Primary Care Provider [phone] Reason for Visit * Reason Comments Med Refill Encounter Details Date Type Department Care Team ([facility] st Contact Info) Description 06/11/2025 Refill [facility] [address] [place] [address] Anjelica Keith MD [address] [place] [address] Social History Tobacco Use Types Packs/Day Years [...] documented as of this encounter Care Teams Health And Wellness Coach Relationship Specialty Start Date End Date Anjelica Keith MD [address] [place] [phone] PCP - General Family Medicine 01/19/16 documented as of this encounter
[2025-06-23 14:42] LABS: Alanine Aminotransferase 13 U/L (0-31); Albumin Level 4.5 g/dL (3.5-5.0); Alkaline Phosphatase 104 U/L (39-117); Anion Gap 11 (12-20); Aspartate Amino Transferase 27 U/L (5-31); Blood Urea Nitrogen 21 mg/dL (9-16); Calcium 9.5 mg/dL (8.4-10.2); Carbon Dioxide 27 mmol/L (22-29); Chloride 108 mmol/L (96-108); Cholesterol 229 mg/dL (<200); Estimated Glomerular Filt Rate > 60; HDL Cholesterol 50 mg/dL (>40); Potassium 4.5 mmol/L (3.3-5.1); Sodium 141 mmol/L (135-145); Total Protein 8.1 g/dL (6.5-8.0); Triglycerides 89 mg/dL (<150)
== END 2025-06-23 09:06 | disposition home or self-care (01) ==
LOC: HO.CHCLDS 09:05
PROVIDERS: Visit Provider Student in an Organized Health Care Education/Training Program
DX: I10 Essential (primary) hypertension (principal); E78.00 Pure hypercholesterolemia, unspecified
CPT/HCPCS: 36415; 80048; 80061; 80076